=== PATIENT | female | born 1945 | race Caucasian/White ===

== ENCOUNTER → 2018-10-05 | Outpatient (CLI) | payer MEDICARE, OTHER ==
[2018-10-05 10:17] LABS: CREATININE SERUM 1.09 MG/DL (0.60-1.30)
--- NOTE | 2018-10-05 15:10 | Diagnostic Imaging Report ---
PROCEDURE: CT chest with contrast only. TECHNIQUE: Multiple contiguous axial images were obtained through the chest after administration of intravenous contrast. Auto Exposure Controls were utilized during the CT exam to meet ALARA standards for radiation dose reduction. INDICATION: History of smoking, cough, and shortness of air. COMPARISON: Outside PET/CT from 09/28/2018. FINDINGS: Lungs and airway: No endoluminal nodule within the trachea. Moderate centrilobular emphysema is present. There is a gently lobulated 1.0 cm nodule within the posterior left upper lobe. This has a small amount of ill-defined nodularity surrounding the dominant nodule as well. The right middle lobe is now aerated, which was atelectatic on the outside PET/CT. A well-circumscribed solid noncalcified nodule is present in the posterior aspect of the middle lobe measuring 1.0 x 1.2 cm. This area was unable to be seen due to complete atelectasis on prior exam. Pleura: No pleural effusion or pneumothorax. Heart and mediastinum: Visualized thyroid has a stable nodule in the lower aspect of the left lobe measuring 1.5 x 1.5 cm. No supraclavicular or axillary lymphadenopathy. No mediastinal, hilar, or juxtaphrenic lymphadenopathy. Heart is normal in size without pericardial effusion. Moderate-sized paraesophageal hiatal hernia. Normal-caliber thoracic aorta. Upper abdomen: Hypoattenuation of the liver could relate to hepatic steatosis. Musculoskeletal: No lytic or blastic skeletal lesion of concern. IMPRESSION: 1. Indeterminate pulmonary nodules involving the left upper lobe and right middle lobe. Correlation with report from outside PET/CT is recommended to determine if these had metabolic activity present or not. The right middle lobe was atelectatic on the PET/CT and therefore this nodule was not directly visualized. 2. No intrathoracic lymphadenopathy. Dictated by: Dictated on workstation # [id number]
== END ==
LOC: RAD 09:44
PROVIDERS: ATTEND Nurse Practitioner Family
DX: J44.9 Chronic obstructive pulmonary disease, unspecified (principal); J30.9 Allergic rhinitis, unspecified; J98.11 Atelectasis; R91.8 Other nonspecific abnormal finding of lung field; Z87.891 Personal history of nicotine dependence
CPT/HCPCS: 36415; 71260; 82565; 84520

== ENCOUNTER 2018-10-11 05:50 | Outpatient (CLI) | payer MEDICARE, OTHER ==
[~2018-10-11] VITALS: Ht 168.9 cm; Wt 82.1 kg
[2018-10-11] MEDS ORDERED: FLUT1DIS27 IH (15:22)
[2018-10-11] MEDS ORDERED: LEVO25TA5 PO (15:22)
[2018-10-11] MEDS ORDERED: TRIA1TAB5 PO (15:22)
[2018-10-11] MEDS ORDERED: IRBE300T18 PO (15:22)
[2018-10-11] MEDS ORDERED: DIPH-581 PO (15:22)
[2018-10-11] MEDS ORDERED: ALB0.5V INH (15:22)
[2018-10-11] MEDS ORDERED: ATOR80TA76 PO (15:22)
[2018-10-11] MEDS ORDERED: FLUO10CA29 PO (15:22)
[2018-10-11] MEDS ORDERED: FLUT9.9S NS (15:22)
[2018-10-11] MEDS ORDERED: ASPI-586 PO (15:22)
== END 2018-10-11 15:29 | disposition home or self-care (01) ==
LOC: PREOP 05:50
PROVIDERS: ATTEND Internal Medicine Critical Care Medicine
DX: Z01.818 Encounter for other preprocedural examination (principal)

== ENCOUNTER 2018-10-13 06:35 | Day surgery (SDC) | payer MEDICARE, OTHER ==
[~2018-10-13] VITALS: Ht 168.9 cm; Wt 82.1 kg
[~2018-10-13 06:35] MED LIST: ALB0.5V INH; ASPI-586 PO; ATOR80TA76 PO; DIPH-581 PO; FLUO10CA29 PO; FLUT1DIS27 IH; FLUT9.9S NS; IRBE300T18 PO; LEVO25TA5 PO; TRIA1TAB5 PO
[2018-10-13] MEDS ORDERED: LIDOCAINE PF 2% 5 ML (XYLOCAINE) VIAL INJ ONE (06:36)
[2018-10-13] MEDS ORDERED: LIDOCAINE PF 1% 2 ML AMP IJ ONE ×2 (06:36)
[2018-10-13] MEDS ORDERED: LIDOCAINE JELLY 2% 6 ML SYRINGE MM ONE (06:36)
--- OUTSIDE RECORDS SUMMARY | 2018-10-13 06:39 | XMS REPORT | CCD ---
Author Author SARA CLINTON Organization Unknown Address [address] [place] [address] Care Team Providers Care Ethylbenzene Oxidizer Name Role Phone AILYN SEALS, KEESHA Parker Attphys Allergies Allergy Code Allergy Type Reaction Status No Known Drug Allergies 0 Drug allergy Active Active Medications No Active Medications Problems Unknown or Not Available. Procedures Procedure Code Procedure Type Date Neuroplasty &/transposition ulnar nerve elbow; (-LT Left side of body) 60507 CPT 03/07/2016 Results Unknown or Not Available. Function Status Unknown or Not Available. History of Immunizations Immunization Code Date Tdap 115 08/14/2014 Plan of Treatment Unknown or Not Available. Social History Smoking Status Code Start Date End Date Never smoker [id number] Vital Signs Vital Sign Value Unit Date/Time Recent/Initial? Weight Measured 175 [lb_av] 02/19/2016 12:31 Initial VS Height 67 [in_i] 02/19/2016 12:31 Initial VS BMI (Body Mass Index) 27.41 kg/m2 02/19/2016 12:31 Initial VS BSA (Body Surface Area) 1.94 m2 02/19/2016 12:31 Initial VS BP Systolic 98 mm[Hg] 03/07/2016 10:16 Initial VS BP Diastolic 47 mm[Hg] 03/07/2016 10:16 Initial VS Respiratory Rate 13 /min 03/07/2016 10:16 Initial VS Heart Rate 85 /min 03/07/2016 10:16 Initial VS O2 % BldC Oximetry 96 % 03/07/2016 10:16 Initial VS Respiratory Rate 10 /min 03/07/2016 10:47 Most Recent VS O2 % BldC Oximetry 100 % 03/07/2016 10:47 Most Recent VS BP Systolic 98 mm[Hg] 03/07/2016 10:53 Most Recent VS BP Diastolic 54 mm[Hg] 03/07/2016 10:53 Most Recent VS Heart Rate 82 /min 03/07/2016 10:53 Most Recent VS Function Status Unknown or Not Available. Goals Unknown or Not Available. ASSESSMENTS Unknown or Not Available. Health Concerns Section Unknown or Not Available.
--- OUTSIDE RECORDS SUMMARY | 2018-10-13 06:40 | XMS REPORT | CCD ---
Author Author ZENAIDA SPRINGER Unknown Address [address] [place] [address] Care Team Providers Care Gyn Physician Name Role Phone HYDE ER, JOON DO Attphys HYDE ER, JOON DO Prisurg Allergies Allergy Code Allergy Type Reaction Status No Known Drug Allergies 0 Drug allergy Active Active Medications Unknown or Not Available. Problems Unknown or Not Available. Procedures Procedure Code Procedure Type Date CT HEAD W/O CONTRAST [id number] SNOMED CT 03/30/2016 Results Unknown or Not Available. Encounters Encounter Diagnosis Diagnosis Code Start Date Contusion of other part of head, initial encounter [id number] 03/30/2016 Function Status Unknown or Not Available. History of Immunizations Immunization Code Date Tdap 115 08/14/2014 Plan of Treatment Unknown or Not Available. Social History Smoking Status Code Start Date End Date Never smoker [id number] Vital Signs Unknown or Not Available. Function Status Unknown or Not Available. Goals Unknown or Not Available. ASSESSMENTS Unknown or Not Available. Health Concerns Section Unknown or Not Available.
--- OUTSIDE RECORDS SUMMARY | 2018-10-13 06:42 | XMS REPORT ---
Author Author Calvin Britt [facility] Address [address] [place], [place] [id number] Care Team Providers Care Vacuum Drier Operator Name Role Phone Calvin Britt PCP Calvin Britt PreferredProvider Allergies and Adverse Reactions Name Reaction Notes INFLUENZA VIRUS VACCINE [place] pt is allergic to the generic Plan of Treatment Planned Activity Comments Planned Date Planned Time Plan/Goal Thyroid stimulating hormone (TSH) 09/13/2018 12:00 AM Complete ultrasound of left breast 10/04/2018 12:00 AM PET scan for malignancy of skull base to mid-thigh 09/23/2018 12:00 AM Comprehensive Metabolic Panel 11/30/2013 12:00 AM Rapid influenza antigen detection at point of care 07/25/2014 12:00 AM Pap smear HPV 07/19/2014 12:00 AM Medications Active Name Start Date Estimated Completion Date SIG Comments Lipitor 80 mg oral tablet take 1 tablet (80 mg) by oral route once daily triamterene-hydrochlorothiazid 75-50 mg oral tablet take 1 tablet by oral route once daily triamcinolone acetonide 55 mcg nasal aerosol,spray spray 1 spray in each nostril by intranasal route once daily fluoxetine 10 mg oral capsule 02/02/2018 TAKE ONE CAPSULE BY MOUTH ONCE DAILY Ambien 10 mg oral tablet take 1 tablet (10 mg) by oral route once daily at bedtime for 30 days fluticasone propionate 50 mcg/actuation nasal spray,suspension 09/13/2018 inhale 2 sprays (100 mcg) in each nostril by intranasal route once daily Name Start Date Expiration Date SIG Comments ProAir HFA 90 mcg/actuation inhalation HFA aerosol inhaler 05/02/2011 04/26/2012 inhale 2 puffs by inhalation route every 6 hours as needed Avapro 300 mg oral tablet 08/12/2011 09/11/2011 take 1 tablet (300 mg) by oral route once daily Advair Diskus 500-50 mcg/dose inhalation blister with device 12/25/2011 01/24/2012 INHALE ONE INHALATION EVERY TWELVE HOURS not covered prednisone 5 mg oral tablet 08/30/2013 09/13/2013 take 1 tablet by oral route daily for 14 days Enteric Coated Aspirin 81 mg oral tablet,delayed release (DR/EC) 09/26/2014 09/27/2014 take 1 tablet by oral route 3 times per week Medrol (Reuben) 4 mg oral tablets,dose pack 12/27/2014 01/02/2015 take as directed for 6 days Synthroid 25 mcg oral tablet 11/26/2015 02/24/2016 take 1 tablet (25 mcg) by oral route once daily for 90 days Advair Diskus 500-50 mcg/dose inhalation blister with device 04/02/2017 04/02/2017 INHALE ONE DOSE BY MOUTH TWICE DAILY Tamiflu 75 mg oral capsule 05/09/2017 take 1 capsule (75 mg) by oral route 2 times per day for 5 days levothyroxine 25 mcg oral tablet 06/29/2017 06/29/2017 TAKE ONE TABLET BY MOUTH ONCE DAILY albuterol sulfate 2.5 mg /3 mL (0.083 %) inhalation solution for nebulization 10/26/2017 12/27/2017 USE ONE VIAL IN NEBULIZER 4 TIMES DAILY. Dx: COPD J44.9 Augmentin 875-125 mg oral tablet 04/07/2018 04/14/2018 take 1 tablet by oral route every 12 hours for 7 days Discontinued Name Start Date Discontinued Date SIG Comments [place]and 32 mg oral tablet 08/12/2011 take 1 tablet (32 mg) by oral route once daily Spiriva with HandiHaler 18 mcg inhalation capsule, w/inhalation device 06/05/2014 08/14/2014 inhale 1 capsule (18 mcg) by inhalation route once daily for 30 days to expensive Symbicort 160-4.5 mcg/actuation inhalation HFA aerosol inhaler 06/05/2014 07/26/2014 inhale 2 puffs by inhalation route 2 times per day in the morning and evening for 30 days Advair HFA 115-21 mcg/actuation inhalation HFA aerosol inhaler 07/26/2014 08/14/2014 inhale 2 puffs by inhalation route 2 times per day in the morning and evening to expensive ipratropium bromide 0.02 % inhalation solution 09/26/2014 01/11/2016 inhale 2.5 milliliters (500 mcg) via nebulizer by inhalation route every 6 hours for 90 days [place] Ellipta 100-25 mcg/dose inhalation blister with device 01/11/2016 01/11/2016 inhale 1 puff by inhalation route once daily at the same time each day for 30 days Lunesta 3 mg oral tablet 04/07/2018 04/08/2018 take 1 tablet (3 mg) by oral route once daily at bedtime for 30 days Problem List Description Status Onset Allergic Rhinitis Active CAD Active Chronic Obstructive Pulmonary Disease Active Hyperlipidemia Active Hypertension Active Vital Signs Date Time BP-Sys(mm[Hg] BP-Dilia(mm[Hg]) HR(bpm) RR(rpm) Temp WT HT HC BMI BSA BMI Percentile O2 Sat(%) 09/13/2018 10:23:00 AM 132 mmHg 68 mmHg 78 bpm 18 rpm 97.2 F 180.125 lbs 66 in 29.0726 kg/m 1.9506 m 95 % 04/07/2018 10:49:00 AM 120 mmHg 64 mmHg 94 bpm 16 rpm 98.8 F 179 lbs 66 in 28.89 kg/m2 1.94 m2 96 % 02/03/2018 10:23:00 AM 126 mmHg 64 mmHg 76 bpm 16 rpm 98.2 F 180 lbs 66 in 29.0525 kg/m 1.9499 m 97 % 09/24/2017 11:10:00 AM 176 mmHg 82 mmHg 84 bpm 18 rpm 97.9 F 184.375 lbs 66 in 29.76 kg/m2 1.97 m2 95 % 05/09/2017 8:30:00 AM 120 mmHg 68 mmHg 74 bpm 18 rpm 99 F 174 lbs 66 in 28.08 kg/m2 1.9171 m 92 % 02/23/2017 9:02:00 AM 130 mmHg 60 mmHg 96 bpm 16 rpm 97.8 F 174.5 lbs 96 % 01/19/2017 3:04:00 PM 138 mmHg 64 mmHg 78 bpm 20 rpm 98.2 F 169 lbs 66 in 27.277 kg/m 1.8894 m 97 % 10/15/2016 2:20:00 PM 138 mmHg 76 mmHg 80 bpm 18 rpm 99 F 171.125 lbs 66 in 27.62 kg/m2 1.90 m2 93 % 07/16/2016 3:20:00 PM 116 mmHg 64 mmHg 79 bpm 16 rpm 97.8 F 171.25 lbs 66 in 27.6402 kg/m 1.9019 m 93 % 04/17/2016 2:23:00 PM 132 mmHg 72 mmHg 79 bpm 16 rpm 98.6 F 180 lbs 66 in 29.05 kg/m2 1.95 m2 94 % 01/11/2016 10:38:00 AM 116 mmHg 70 mmHg 73 bpm 16 rpm 98 F 173 lbs 66 in 27.9226 kg/m 1.9116 m 95 % 12/14/2015 9:31:00 AM 148 mmHg 80 mmHg 89 bpm 16 rpm 98.3 F 173.375 lbs 66 in 27.98 kg/m2 1.91 m2 95 % 03/21/2015 10:35:00 AM 128 mmHg 64 mmHg 84 bpm 98.4 F 180.125 lbs 67 in 28.21 kg/m2 1.9653 m 95 % 12/27/2014 10:21:00 AM 124 mmHg 70 mmHg 76 bpm 99.1 F 179.375 lbs 66 in 28.9516 kg/m 1.95 m2 94 % 09/26/2014 10:08:00 AM 112 mmHg 74 mmHg 81 bpm 98.4 F 179.125 lbs 66 in 28.91 kg/m2 1.9451 m 92 % 08/14/2014 3:43:00 PM 130 mmHg 64 mmHg 82 bpm 96.9 F 177.25 lbs 66 in 28.6086 kg/m 1.93 m2 96 % 07/25/2014 9:31:00 AM 122 mmHg 66 mmHg 102 bpm 99.5 F 178.5 lbs 66 in 28.81 kg/m2 1.9417 m 95 % 07/19/2014 1:30:00 PM 124 mmHg 68 mmHg 80 bpm 98.6 F 177.5 lbs 67 in 27.8001 kg/m 1.95 m2 95 % 06/05/2014 1:46:00 PM 122 mmHg 66 mmHg 80 bpm 98.6 F 177.25 lbs 67 in 27.76 kg/m2 1.95 m2 95 % 03/06/2014 1:17:00 PM 110 mmHg 62 mmHg 75 bpm 16 rpm 97.9 F 177 lbs 67 in 27.7218 kg/m 1.9482 m 97 % 11/30/2013 11:00:00 AM 120 mmHg 68 mmHg 75 bpm 20 rpm 97.5 F 171.2 lbs 67 in 26.81 kg/m2 1.92 m2 95 % 08/30/2013 2:08:00 PM 122 mmHg 63 mmHg 80 bpm 16 rpm 98.3 F 173 lbs 67 in 27.0954 kg/m 1.926 m 95 % 05/26/2013 2:10:00 PM 110 mmHg 70 mmHg 76 bpm 16 rpm 97.9 F 172.25 lbs 67 in 26.98 kg/m2 1.92 m2 95 % 02/23/2013 2:02:00 PM 118 mmHg 68 mmHg 79 bpm 16 rpm 97.2 F 170.375 lbs 98 % 11/23/2012 1:12:00 PM 122 mmHg 74 mmHg 69 bpm 20 rpm 97.4 F 167.8 lbs 67 in 26.28 kg/m2 1.90 m2 95 % 08/16/2012 1:44:00 PM 122 mmHg 80 mmHg 70 bpm 16 rpm 97.8 F 169 lbs 97 % 05/19/2012 2:04:00 PM 122 mmHg 74 mmHg 74 bpm 16 rpm 96.8 F 166.25 lbs 96 % 02/10/2012 9:08:00 AM 134 mmHg 80 mmHg 79 bpm 16 rpm 96 F 171.125 lbs 97 % 11/12/2011 8:31:00 AM 120 mmHg 80 mmHg 82 bpm 16 rpm 98 F 180.125 lbs 93 % 08/12/2011 9:25:00 AM 142 mmHg 80 mmHg 81 bpm 16 rpm 97.4 F 180 lbs 95 % 07/02/2011 9:13:00 AM 142 mmHg 80 mmHg 84 bpm 16 rpm 97.6 F 178.375 lbs 94 % 05/05/2011 8:49:00 AM 122 mmHg 72 mmHg 04/29/2011 9:51:00 AM 130 mmHg 86 mmHg 71 bpm 16 rpm 97.3 F 182.5 lbs 67 in 28.58 kg/m2 1.98 m2 98 % Social History Name Description Comments Alcohol Never High school graduate Tobacco Former smoker Denies illicit substance abuse Active but no formal exercise retired Did not serve in Children Lives with spouse History of Procedures Date Ordered Description Order Status 12/21/2014 12:00 AM COMPLETE CBC W/AUTO DIFF WBC Reviewed 12/21/2014 12:00 AM COMPREHEN METABOLIC PANEL Reviewed 12/21/2014 12:00 AM LIPID PANEL Reviewed 03/16/2015 12:00 AM COMPLETE CBC W/AUTO DIFF WBC Reviewed 03/16/2015 12:00 AM COMPREHEN METABOLIC PANEL Reviewed 03/16/2015 12:00 AM LIPID PANEL Reviewed 04/29/2011 12:00 AM COMPREHEN METABOLIC PANEL Reviewed 04/29/2011 12:00 AM LIPID PANEL Reviewed 04/29/2011 12:00 AM COMPLETE CBC W/AUTO DIFF WBC Reviewed 12/14/2015 12:00 AM NVR CNDJ TST 1-2 STUDIES Returned 07/02/2011 12:00 AM COMPREHEN METABOLIC PANEL Reviewed 07/02/2011 12:00 AM LIPID PANEL Reviewed 04/14/2016 12:00 AM COMPLETE CBC W/AUTO DIFF WBC Returned 04/14/2016 12:00 AM COMPREHEN METABOLIC PANEL Returned 04/14/2016 12:00 AM LIPID PANEL Returned 08/12/2011 12:00 AM COMPREHEN METABOLIC PANEL Reviewed 08/12/2011 12:00 AM LIPID PANEL Reviewed 05/18/2016 12:00 AM ASSAY THYROID STIM HORMONE Returned 11/12/2011 12:00 AM COMPREHEN METABOLIC PANEL Reviewed 11/12/2011 12:00 AM LIPID PANEL Reviewed 10/10/2016 12:00 AM COMPLETE CBC W/AUTO DIFF WBC Returned 10/10/2016 12:00 AM COMPREHEN METABOLIC PANEL Returned 10/10/2016 12:00 AM LIPID PANEL Returned 10/10/2016 12:00 AM ASSAY THYROID STIM HORMONE Returned 10/15/2016 12:00 AM METABOLIC PANEL TOTAL CA Returned 10/15/2016 12:00 AM COMPLETE CBC W/AUTO DIFF WBC Returned 02/10/2012 12:00 AM COMPREHEN METABOLIC PANEL Reviewed 02/10/2012 12:00 AM LIPID PANEL Reviewed 02/10/2012 12:00 AM COMPLETE CBC W/AUTO DIFF WBC Reviewed 02/23/2017 12:00 AM NRV CNDJ TEST 9-10 STUDIES Reviewed 02/23/2017 12:00 AM MUSC TEST DONE W/N TEST COMP Reviewed 05/19/2012 12:00 AM COMPREHEN METABOLIC PANEL Reviewed 05/19/2012 12:00 AM LIPID PANEL Reviewed 05/19/2012 12:00 AM COMPLETE CBC W/AUTO DIFF WBC Reviewed 07/13/2017 12:00 AM COMPLETE CBC W/AUTO DIFF WBC Returned 07/13/2017 12:00 AM COMPREHEN METABOLIC PANEL Returned 07/13/2017 12:00 AM LIPID PANEL Returned 07/13/2017 12:00 AM ASSAY THYROID STIM HORMONE Returned 09/24/2017 12:00 AM MAMMOGRAM BOTH BREASTS Returned 11/16/2012 12:00 AM COMPREHEN METABOLIC PANEL Reviewed 11/16/2012 12:00 AM LIPID PANEL Reviewed 11/16/2012 12:00 AM COMPLETE CBC W/AUTO DIFF WBC Reviewed 02/23/2013 12:00 AM COMPREHEN METABOLIC PANEL Reviewed 02/23/2013 12:00 AM LIPID PANEL Reviewed 02/23/2013 12:00 AM COMPLETE CBC W/AUTO DIFF WBC Reviewed 05/26/2013 12:00 AM COMPREHEN METABOLIC PANEL Reviewed 05/26/2013 12:00 AM LIPID PANEL Reviewed 05/26/2013 12:00 AM COMPLETE CBC W/AUTO DIFF WBC Reviewed 09/09/2018 12:00 AM MAMMOGRAM BOTH BREASTS Returned 09/14/2018 12:[address] THORAX W/DYE Returned 09/13/2018 12:00 AM COMPLETE CBC W/AUTO DIFF WBC Returned 09/13/2018 12:00 AM COMPREHEN METABOLIC PANEL Returned 09/13/2018 12:00 AM CHEST X-RAY 2VW FRONTAL&LATL Returned 05/26/2013 12:00 AM MAMMOGRAM BOTH BREASTS Reviewed 08/26/2013 12:00 AM COMPLETE CBC W/AUTO DIFF WBC Reviewed 08/26/2013 12:00 AM COMPREHEN METABOLIC PANEL Reviewed 08/26/2013 12:00 AM LIPID PANEL Reviewed 08/26/2013 12:00 AM MICROALBUMIN SEMIQUANT Reviewed 08/30/2013 12:00 AM Shoulder Min 2Views - MOB Reviewed 09/08/2013 12:00 AM MRI JOINT UPR EXTREM W/O DYE Reviewed 11/30/2013 12:00 AM LIPID PANEL Reviewed 11/30/2013 12:00 AM COMPLETE CBC W/AUTO DIFF WBC Reviewed 03/07/2014 12:00 AM COMPLETE CBC W/AUTO DIFF WBC Reviewed 03/07/2014 12:00 AM COMPREHEN METABOLIC PANEL Reviewed 03/07/2014 12:00 AM LIPID PANEL Reviewed 07/04/2014 12:00 AM MAMMOGRAM SCREENING Reviewed 08/14/2014 12:00 AM IMMUNIZATION ADMIN Reviewed 08/14/2014 12:00 AM TDAP VACCINE 7 YRS/> IM Reviewed 09/25/2014 12:00 AM COMPLETE CBC W/AUTO DIFF WBC Reviewed 09/25/2014 12:00 AM COMPREHEN METABOLIC PANEL Reviewed 09/25/2014 12:00 AM LIPID PANEL Reviewed 09/25/2014 12:00 AM ASSAY THYROID STIM HORMONE Reviewed Results Summary Date and Description Results 04/29/2011 10:05 AM Colonoscopy-Women and Men over 50 Declined Mammogram -Women over 40 Normal Pap Smear Declined 05/05/2011 8:35 AM WBC 5.6 RBC 4.79 HGB 14.0 g/dLHCT 42.70 %MCV 89.0 fLMCH 29.20 pgMCHC 32.80 g/dLRDW SD 45 RDW CV 13.70 %MPV 9.80 fLPLT 214 NRBC# 0.00 NRBC% 0.0 %NEUT 55.90 %%LYMP 29.40 %%MONO 9.30 %%EOS 5.0 %%BASO 0.40 %#NEUT 3.11 #LYMP 1.64 #MONO 0.52 #EOS 0.28 #BASO 0.02 MANUAL DIFF NOT IND GLUCOSE 91.0 mg/dLSODIUM 143.0 mmol/LPOTASSIUM 4.10 mmol/LCHLORIDE 107.0 mmol/LCO2 29.0 mmol/LBUN 26.0 mg/dLCREATININE 1.20 mg/dLSGOT/AST 21.0 IU/LSGPT/ALT 28.0 IU/LALK PHOS 127.0 IU/LTOTAL PROTEIN 6.40 g/dLALBUMIN 4.30 g/dLTOTAL BILI 0.40 mg/dLCALCIUM 9.70 mg/dLAGE 65 GFR NonAA 45 GFR AA 55 eGFR 45 eGFR AA* 55 TRIGLYCERIDES 95.0 mg/dLCHOLESTEROL 139.0 mg/dLHDL 42.0 mg/dLTOT CHOL/HDL 3.3 LDL (CALC) 78.0 mg/dL 08/08/2011 8:25 AM GLUCOSE 94.0 mg/dLSODIUM 141.0 mmol/LPOTASSIUM 3.80 mmol/LCHLORIDE 105.0 mmol/LCO2 26.0 mmol/LBUN 35.0 mg/dLCREATININE 1.20 mg/dLSGOT/AST 21.0 IU/LSGPT/ALT 26.0 IU/LALK PHOS 130.0 IU/LTOTAL PROTEIN 6.80 g/dLALBUMIN 4.20 g/dLTOTAL BILI 0.50 mg/dLCALCIUM 9.50 mg/dLAGE 65 GFR NonAA 45 GFR AA 55 eGFR 45 eGFR AA* 55 TRIGLYCERIDES 124.0 mg/dLCHOLESTEROL 179.0 mg/dLHDL 46.0 mg/dLTOT CHOL/HDL 3.9 LDL (CALC) 108.0 mg/dL 11/07/2011 8:30 AM GLUCOSE 94.0 mg/dLSODIUM 142.0 mmol/LPOTASSIUM 3.80 mmol/LCHLORIDE 107.0 mmol/LCO2 27.0 mmol/LBUN 17.0 mg/dLCREATININE 0.90 mg/dLSGOT/AST 19.0 IU/LSGPT/ALT 27.0 IU/LALK PHOS 127.0 IU/LTOTAL PROTEIN 6.50 g/dLALBUMIN 4.0 g/dLTOTAL BILI 0.30 mg/dLCALCIUM 9.40 mg/dLAGE 66 GFR NonAA 63 GFR AA 76 eGFR 60 eGFR AA* 60 TRIGLYCERIDES 174.0 mg/dLCHOLESTEROL 164.0 mg/dLHDL 46.0 mg/dLTOT CHOL/HDL 3.6 LDL (CALC) 83.0 mg/dL 02/07/2012 8:15 AM GLUCOSE 87.0 mg/dLSODIUM 141.0 mmol/LPOTASSIUM 3.80 mmol/LCHLORIDE 106.0 mmol/LCO2 28.0 mmol/LBUN 20.0 mg/dLCREATININE 1.0 mg/dLSGOT/AST 22.0 IU/LSGPT/ALT 32.0 IU/LALK PHOS 144.0 IU/LTOTAL PROTEIN 6.70 g/dLALBUMIN 4.10 g/dLTOTAL BILI 0.40 mg/dLCALCIUM 9.70 mg/dLAGE 66 GFR NonAA 56 GFR AA 68 eGFR 56 eGFR AA* 60 TRIGLYCERIDES 131.0 mg/dLCHOLESTEROL 151.0 mg/dLHDL 48.0 mg/dLTOT CHOL/HDL 3.1 LDL (CALC) 77.0 mg/dL 05/10/2012 8:20 AM WBC 6.1 RBC 5.20 HGB 15.40 g/dLHCT 45.70 %MCV 88.0 fLMCH 29.60 pgMCHC 33.70 g/dLRDW SD 44 RDW CV 13.60 %MPV 9.50 fLPLT 234 NRBC# 0.00 NRBC% 0.0 %NEUT 57.80 %%LYMP 27.30 %%MONO 7.20 %%EOS 7.20 %%BASO 0.50 %#NEUT 3.50 #LYMP 1.66 #MONO 0.44 #EOS 0.44 #BASO 0.03 MANUAL DIFF NOT IND GLUCOSE 89.0 mg/dLSODIUM 143.0 mmol/LPOTASSIUM 3.50 mmol/LCHLORIDE 105.0 mmol/LCO2 27.0 mmol/LBUN 27.0 mg/dLCREATININE 1.10 mg/dLSGOT/AST 21.0 IU/LSGPT/ALT 30.0 IU/LALK PHOS 153.0 IU/LTOTAL PROTEIN 7.10 g/dLALBUMIN 4.20 g/dLTOTAL BILI 0.40 mg/dLCALCIUM 10.20 mg/dLAGE 66 GFR NonAA 50 GFR AA 61 eGFR 50 eGFR AA* 60 TRIGLYCERIDES 115.0 mg/dLCHOLESTEROL 180.0 mg/dLHDL 51.0 mg/dLTOT CHOL/HDL 3.5 LDL (CALC) 106.0 mg/dL 08/12/2012 8:45 AM WBC 6.1 RBC 4.91 HGB 14.40 g/dLHCT 43.40 %MCV 88.0 fLMCH 29.30 pgMCHC 33.20 g/dLRDW SD 44 RDW CV 13.70 %MPV 9.70 fLPLT 220 NRBC# 0.00 NRBC% 0.0 %NEUT 54.30 %%LYMP 29.80 %%MONO 8.50 %%EOS 6.90 %%BASO 0.50 %#NEUT 3.32 #LYMP 1.82 #MONO 0.52 #EOS 0.42 #BASO 0.03 MANUAL DIFF NOT IND GLUCOSE 90.0 mg/dLSODIUM 143.0 mmol/LPOTASSIUM 3.80 mmol/LCHLORIDE 104.0 mmol/LCO2 27.0 mmol/LBUN 28.0 mg/dLCREATININE 1.10 mg/dLSGOT/AST 20.0 IU/LSGPT/ALT 25.0 IU/LALK PHOS 123.0 IU/LTOTAL PROTEIN 6.80 g/dLALBUMIN 4.0 g/dLTOTAL BILI 0.50 mg/dLCALCIUM 10.10 mg/dLAGE 66 GFR NonAA 50 GFR AA 61 eGFR 50 eGFR AA* 60 TRIGLYCERIDES 98.0 mg/dLCHOLESTEROL 157.0 mg/dLHDL 49.0 mg/dLTOT CHOL/HDL 3.2 LDL (CALC) 88.0 mg/dL 11/18/2012 8:58 AM WBC 5.4 RBC 4.72 HGB 13.80 g/dLHCT 41.60 %MCV 88.0 fLMCH 29.20 pgMCHC 33.20 g/dLRDW SD 44 RDW CV 13.50 %MPV 9.70 fLPLT 198 NRBC# 0.00 NRBC% 0.0 %NEUT 56.30 %%LYMP 31.0 %%MONO 6.70 %%EOS 5.60 %%BASO 0.40 %#NEUT 3.02 #LYMP 1.66 #MONO 0.36 #EOS 0.30 #BASO 0.02 MANUAL DIFF NOT IND GLUCOSE 97.0 mg/dLSODIUM 143.0 mmol/LPOTASSIUM 4.0 mmol/LCHLORIDE 107.0 mmol/LCO2 28.0 mmol/LBUN 22.0 mg/dLCREATININE 1.0 mg/dLSGOT/AST 19.0 IU/LSGPT/ALT 22.0 IU/LALK PHOS 113.0 IU/LTOTAL PROTEIN 6.10 g/dLALBUMIN 3.80 g/dLTOTAL BILI 0.50 mg/dLCALCIUM 9.70 mg/dLAGE 67 GFR NonAA 55 GFR AA 67 eGFR 55 eGFR AA* 60 TRIGLYCERIDES 90.0 mg/dLCHOLESTEROL 130.0 mg/dLHDL 46.0 mg/dLTOT CHOL/HDL 2.8 LDL (CALC) 66.0 mg/dL 02/21/2013 8:25 AM WBC 6.6 RBC 4.78 HGB 13.90 g/dLHCT 42.10 %MCV 88.0 fLMCH 29.10 pgMCHC 33.0 g/dLRDW SD 46 RDW CV 14.50 %MPV 9.70 fLPLT 260 NRBC# 0.00 NRBC% 0.0 %NEUT 56.30 %%LYMP 27.50 %%MONO 7.30 %%EOS 8.40 %%BASO 0.50 %#NEUT 3.71 #LYMP 1.81 #MONO 0.48 #EOS 0.55 #BASO 0.03 MANUAL DIFF NOT IND TRIGLYCERIDES 136.0 mg/dLCHOLESTEROL 178.0 mg/dLHDL 55.0 mg/dLTOT CHOL/HDL 3.2 LDL (CALC) 96.0 mg/dLGLUCOSE 90.0 mg/dLSODIUM 143.0 mmol/LPOTASSIUM 4.0 mmol/LCHLORIDE 106.0 mmol/LCO2 26.0 mmol/LBUN 19.0 mg/dLCREATININE 1.0 mg/dLSGOT/AST 22.0 IU/LSGPT/ALT 33.0 IU/LALK PHOS 164.0 IU/LTOTAL PROTEIN 6.90 g/dLALBUMIN 4.10 g/dLTOTAL BILI 0.60 mg/dLCALCIUM 10.10 mg/dLAGE 67 GFR NonAA 55 GFR AA 67 eGFR 55 eGFR AA* >60 05/23/2013 8:10 AM WBC 6.4 RBC 4.97 HGB 14.60 g/dLHCT 44.20 %MCV 89.0 fLMCH 29.40 pgMCHC 33.0 g/dLRDW SD 45 RDW CV 13.80 %MPV 9.70 fLPLT 266 NRBC# 0.00 NRBC% 0.0 %NEUT 54.80 %%LYMP 31.50 %%MONO 8.0 %%EOS 5.20 %%BASO 0.50 %#NEUT 3.50 #LYMP 2.01 #MONO 0.51 #EOS 0.33 #BASO 0.03 MANUAL DIFF NOT IND GLUCOSE 94.0 mg/dLSODIUM 142.0 mmol/LPOTASSIUM 3.60 mmol/LCHLORIDE 104.0 mmol/LCO2 25.0 mmol/LBUN 25.0 mg/dLCREATININE 1.10 mg/dLSGOT/AST 21.0 IU/LSGPT/ALT 31.0 IU/LALK PHOS 158.0 IU/LTOTAL PROTEIN 6.70 g/dLALBUMIN 4.0 g/dLTOTAL BILI 0.60 mg/dLCALCIUM 10.50 mg/dLAGE 67 GFR NonAA 50 GFR AA 61 eGFR 50 eGFR AA* >60 TRIGLYCERIDES 140.0 mg/dLCHOLESTEROL 178.0 mg/dLHDL 54.0 mg/dLTOT CHOL/HDL 3.3 LDL (CALC) 96.0 mg/dL 08/26/2013 8:15 AM GLUCOSE 98.0 mg/dLSODIUM 141.0 mmol/LPOTASSIUM 3.50 mmol/LCHLORIDE 106.0 mmol/LCO2 27.0 mmol/LBUN 31.0 mg/dLCREATININE 1.10 mg/dLSGOT/AST 19.0 IU/LSGPT/ALT 23.0 IU/LALK PHOS 117.0 IU/LTOTAL PROTEIN 6.60 g/dLALBUMIN 3.90 g/dLTOTAL BILI 0.60 mg/dLCALCIUM 9.70 mg/dLAGE 68 GFR NonAA 50 GFR AA 61 eGFR 50 eGFR AA* 60 WBC 5.7 RBC 4.61 HGB 13.60 g/dLHCT 40.30 %MCV 87.0 fLMCH 29.50 pgMCHC 33.70 g/dLRDW SD 45 RDW CV 14.20 %MPV 9.30 fLPLT 201 NRBC# 0.00 NRBC% 0.0 %NEUT 51.70 %%LYMP 34.60 %%MONO 8.60 %%EOS 4.60 %%BASO 0.50 %#NEUT 2.95 #LYMP 1.97 #MONO 0.49 #EOS 0.26 #BASO 0.03 MANUAL DIFF NOT IND TRIGLYCERIDES 93.0 mg/dLCHOLESTEROL 179.0 mg/dLHDL 54.0 mg/dLTOT CHOL/HDL 3.3 LDL (CALC) 106.0 mg/dLCREAT UR 110.60 mg/dLMICROALBUMIN UR <0.5 MG/DL 02/24/2014 8:22 AM WBC 6.9 RBC 4.81 HGB 14.10 g/dLHCT 42.90 %MCV 89.0 fLMCH 29.30 pgMCHC 32.90 g/dLRDW SD 44 RDW CV 13.50 %MPV 9.70 fLPLT 249 NRBC# 0.00 NRBC% 0.0 %NEUT 59.20 %%LYMP 25.0 %%MONO 8.40 %%EOS 7.0 %%BASO 0.40 %#NEUT 4.07 #LYMP 1.72 #MONO 0.58 #EOS 0.48 #BASO 0.03 MANUAL DIFF NOT IND GLUCOSE 93.0 mg/dLSODIUM 143.0 mmol/LPOTASSIUM 3.90 mmol/LCHLORIDE 105.0 mmol/LCO2 26.0 mmol/LBUN 25.0 mg/dLCREATININE 1.0 mg/dLSGOT/AST 21.0 IU/LSGPT/ALT 27.0 IU/LALK PHOS 145.0 IU/LTOTAL PROTEIN 6.80 g/dLALBUMIN 4.0 g/dLTOTAL BILI 0.60 mg/dLCALCIUM 9.70 mg/dLAGE 68 GFR NonAA 55 GFR AA 67 eGFR 55 eGFR AA* 60 TRIGLYCERIDES 99.0 mg/dLCHOLESTEROL 148.0 mg/dLHDL 53.0 mg/dLTOT CHOL/HDL 2.8 LDL (CALC) 75.0 mg/dL 05/30/2014 7:35 AM WBC 7.3 RBC 4.66 HGB 13.70 g/dLHCT 42.10 %MCV 90.0 fLMCH 29.40 pgMCHC 32.50 g/dLRDW SD 47 RDW CV 14.20 %MPV 9.50 fLPLT 227 NRBC# 0.00 NRBC% 0.0 %NEUT 56.30 %%LYMP 28.60 %%MONO 7.50 %%EOS 7.20 %%BASO 0.40 %#NEUT 4.12 #LYMP 2.09 #MONO 0.55 #EOS 0.53 #BASO 0.03 MANUAL DIFF NOT IND TRIGLYCERIDES 176.0 mg/dLCHOLESTEROL 189.0 mg/dLHDL 51.0 mg/dLTOT CHOL/HDL 3.7 LDL (CALC) 103.0 mg/dL 09/25/2014 8:50 AM TSH 1.10 uIU/mLTRIGLYCERIDES 117.0 mg/dLCHOLESTEROL 163.0 mg/dLHDL 52.0 mg/dLTOT CHOL/HDL 3.1 LDL (CALC) 88.0 mg/dLGLUCOSE 93.0 mg/dLSODIUM 143.0 mmol/LPOTASSIUM 3.40 mmol/LCHLORIDE 107.0 mmol/LCO2 27.0 mmol/LBUN 13.0 mg/dLCREATININE 1.0 mg/dLSGOT/AST 22.0 IU/LSGPT/ALT 26.0 IU/LALK PHOS 145.0 IU/LTOTAL PROTEIN 6.60 g/dLALBUMIN 3.90 g/dLTOTAL BILI 0.60 mg/dLCALCIUM 9.30 mg/dLAGE 69 GFR NonAA 55 GFR AA 67 eGFR 55 eGFR AA* >60 WBC 6.2 RBC 4.73 HGB 13.80 g/dLHCT 42.40 %MCV 90.0 fLMCH 29.20 pgMCHC 32.50 g/dLRDW SD 45 RDW CV 13.70 %MPV 9.40 fLPLT 217 NRBC# 0.00 NRBC% 0.0 %NEUT 57.20 %%LYMP 22.70 %%MONO 7.40 %%EOS 12.20 %%BASO 0.50 %#NEUT 3.55 #LYMP 1.41 #MONO 0.46 #EOS 0.76 #BASO 0.03 MANUAL DIFF NOT IND 12/21/2014 9:10 AM WBC 7.3 RBC 4.89 HGB 14.50 g/dLHCT 43.50 %MCV 89.0 fLMCH 29.70 pgMCHC 33.30 g/dLRDW SD 47 RDW CV 14.60 %MPV 9.30 fLPLT 209 NRBC# 0.00 NRBC% 0.0 %NEUT 55.80 %%LYMP 28.20 %%MONO 6.90 %%EOS 8.70 %%BASO 0.40 %#NEUT 4.06 #LYMP 2.05 #MONO 0.50 #EOS 0.63 #BASO 0.03 MANUAL DIFF NOT IND GLUCOSE 99.0 mg/dLSODIUM 142.0 mmol/LPOTASSIUM 3.70 mmol/LCHLORIDE 106.0 mmol/LCO2 27.0 mmol/LBUN 20.0 mg/dLCREATININE 0.90 mg/dLSGOT/AST 22.0 IU/LSGPT/ALT 27.0 IU/LALK PHOS 148.0 IU/LTOTAL PROTEIN 6.80 g/dLALBUMIN 4.10 g/dLTOTAL BILI 0.60 mg/dLCALCIUM 9.70 mg/dLAGE 69 GFR NonAA 62 GFR AA 75 eGFR >60 mL/min/1.73meGFR AA* >60 TRIGLYCERIDES 157.0 mg/dLCHOLESTEROL 176.0 mg/dLHDL 50.0 mg/dLTOT CHOL/HDL 3.5 LDL (CALC) 95.0 mg/dL 03/16/2015 9:10 AM WBC 6.8 RBC 4.82 HGB 14.20 g/dLHCT 42.80 %MCV 89.0 fLMCH 29.50 pgMCHC 33.20 g/dLRDW SD 44 RDW CV 13.40 %MPV 9.80 fLPLT 236 NRBC# 0.00 NRBC% 0.0 %NEUT 56.0 %%LYMP 30.10 %%MONO 5.60 %%EOS 7.70 %%BASO 0.60 %#NEUT 3.79 #LYMP 2.04 #MONO 0.38 #EOS 0.52 #BASO 0.04 MANUAL DIFF NOT IND GLUCOSE 101.0 mg/dLSODIUM 144.0 mmol/LPOTASSIUM 3.40 mmol/LCHLORIDE 106.0 mmol/LCO2 28.0 mmol/LBUN 18.0 mg/dLCREATININE 1.10 mg/dLSGOT/AST 19.0 IU/LSGPT/ALT 27.0 IU/LALK PHOS 145.0 IU/LTOTAL PROTEIN 6.40 g/dLALBUMIN 4.0 g/dLTOTAL BILI 0.60 mg/dLCALCIUM 9.60 mg/dLAGE 69 GFR NonAA 49 GFR AA 59 eGFR 49 eGFR AA* 59 TRIGLYCERIDES 136.0 mg/dLCHOLESTEROL 163.0 mg/dLHDL 54.0 mg/dLTOT CHOL/HDL 3.0 LDL (CALC) 82.0 mg/dL 03/23/2018 8:26 AM Falls in last 6 months? No Unsteady or worry about falling? No Fall Risk Assessment Not At Risk History Of Immunizations Name Date Admin Mfg Name Mfg Code Trade Name Lot# Route Inj Vis Given Vis Pub CVX Tdap 08/14/2014 san[employer]i pasteur PMC ADACEL [id number] Intramuscular Left Deltoid 08/14/2014 08/12/2012 115 History of Past Illness Name Date of Onset Comments Chronic Obstructive Pulmonary Disease CAD Allergic Rhinitis Hyperlipidemia Hypertension Essential Hypertension Apr 29 2011 10:06AM Hyperlipidemia Apr 29 2011 10:06AM Coronary Artery Disease Apr 29 2011 10:06AM Depressive Disorder Apr 29 2011 10:06AM Chronic Obstructive Pulmonary Disease Apr 29 2011 10:06AM Hypertension, Benign Essential May 05 2011 8:52AM Essential Hypertension Jul 02 2011 9:15AM Hyperlipidemia Jul 02 2011 9:15AM Coronary Artery Disease Jul 02 2011 9:15AM Depressive Disorder Jul 02 2011 9:15AM Chronic Obstructive Pulmonary Disease Jul 02 2011 9:15AM Lesion, Skin Jul 02 2011 9:15AM Essential Hypertension Aug 12 2011 9:27AM Hyperlipidemia Aug 12 2011 9:27AM Coronary Artery Disease Aug 12 2011 9:27AM Depressive Disorder Aug 12 2011 9:27AM Chronic Obstructive Pulmonary Disease Aug 12 2011 9:27AM Lesion, Skin Aug 12 2011 9:27AM Essential Hypertension Nov 12 2011 8:35AM Hyperlipidemia Nov 12 2011 8:35AM Coronary Artery Disease Nov 12 2011 8:35AM Depressive Disorder Nov 12 2011 8:35AM Chronic Obstructive Pulmonary Disease Nov 12 2011 8:35AM Essential Hypertension Feb 10 2012 9:10AM Hyperlipidemia Feb 10 2012 9:10AM Coronary Artery Disease Feb 10 2012 9:10AM Depressive Disorder Feb 10 2012 9:10AM Chronic Obstructive Pulmonary Disease Feb 10 2012 9:10AM Essential Hypertension May 19 2012 2:06PM Hyperlipidemia May 19 2012 2:06PM Coronary Artery Disease May 19 2012 2:06PM Depressive Disorder May 19 2012 2:06PM Chronic Obstructive Pulmonary Disease May 19 2012 2:06PM Essential Hypertension Aug 16 2012 1:46PM Hyperlipidemia Aug 16 2012 1:46PM Coronary Artery Disease Aug 16 2012 1:46PM Depressive Disorder Aug 16 2012 1:46PM Chronic Obstructive Pulmonary Disease Aug 16 2012 1:46PM Essential Hypertension Nov 23 2012 1:16PM Hyperlipidemia Nov 23 2012 1:16PM Coronary Artery Disease Nov 23 2012 1:16PM Depressive Disorder Nov 23 2012 1:16PM Chronic Obstructive Pulmonary Disease Nov 23 2012 1:16PM Essential Hypertension Feb 23 2013 2:05PM Hyperlipidemia Feb 23 2013 2:05PM Coronary Artery Disease Feb 23 2013 2:05PM Depressive Disorder Feb 23 2013 2:05PM Chronic Obstructive Pulmonary Disease Feb 23 2013 2:05PM Screening Mammogram May 26 2013 2:13PM Allergic Rhinitis May 26 2013 2:12PM Chronic Obstructive Pulmonary Disease May 26 2013 2:12PM Hyperlipidemia May 26 2013 2:12PM CAD May 26 2013 2:12PM Coronary Artery Disease Aug 26 2013 8:08AM Hypertension Aug 26 2013 8:08AM Hyperlipidemia Aug 26 2013 8:08AM Chronic Obstructive Pulmonary Disease Aug 26 2013 8:08AM Dyspnea Aug 30 2013 2:10PM Hypertension Aug 30 2013 2:10PM Chronic Obstructive Pulmonary Disease Aug 30 2013 2:10PM Hyperlipidemia Aug 30 2013 2:10PM CAD Aug 30 2013 2:10PM Bilateral Shoulder Pain Aug 30 2013 2:10PM Pain in joint; shoulder region Sep 08 2013 9:23AM Essential Hypertension Nov 30 2013 11:01AM Hyperlipidemia Nov 30 2013 11:01AM Coronary Artery Disease Nov 30 2013 11:01AM Depressive Disorder Nov 30 2013 11:01AM Chronic Obstructive Pulmonary Disease Nov 30 2013 11:01AM Hypertension Dec 06 2013 1:17PM Hyperlipidemia Dec 06 2013 1:17PM Coronary artery disease Dec 06 2013 1:17PM Hypertension Mar 06 2014 1:18PM Allergic rhinitis Mar 06 2014 1:18PM Chronic Obstructive Pulmonary Disease Mar 06 2014 1:18PM Hyperlipidemia Mar 06 2014 1:18PM Allergic rhinitis Jun 05 2014 1:51PM Chronic Obstructive Pulmonary Disease Jun 05 2014 1:51PM Hyperlipidemia Jun 05 2014 1:51PM Asthma Jun 05 2014 1:51PM Hypertriglyceridemia Jun 05 2014 1:51PM Screening Mammogram Jun 14 2014 10:09AM Bronchitis, Acute Jul 25 2014 9:33AM Medicare Annual Pap Q 2 years Jul 19 2014 1:33PM COPD (chronic obstructive pulmonary disease) Aug 14 2014 3:47PM Adacel Aug 14 2014 5:19PM Allergic rhinitis Sep 25 2014 8:37AM Chronic Obstructive Pulmonary Disease Sep 25 2014 8:37AM Hyperlipidemia Sep 25 2014 8:37AM Asthma Sep 25 2014 8:37AM Hypertriglyceridemia Sep 25 2014 8:37AM Allergic Rhinitis Sep 26 2014 10:07AM Chronic obstructive pulmonary disease Sep 26 2014 10:07AM Hyperlipidemia Sep 26 2014 10:07AM Hypertension Sep 26 2014 10:07AM Chronic bronchitis Sep 26 2014 10:07AM Hypertension Dec 21 2014 9:02AM Hyperlipidemia, unspecified Dec 21 2014 9:02AM Allergic Rhinitis Dec 27 2014 10:24AM Fatigue Dec 27 2014 10:24AM Hypertension Mar 16 2015 8:58AM Hyperlipidemia, unspecified Mar 16 2015 8:58AM Chronic Obstructive Pulmonary Disease Mar 21 2015 10:38AM Hyperlipidemia Mar 21 2015 10:38AM Hypokalemia Mar 21 2015 10:38AM Hyperglycemia Mar 21 2015 10:38AM Ulnar nerve entrapment at elbow, left Dec 14 2015 9:35AM Allergic Rhinitis Jan 11 2016 10:44AM Mild intermittent asthma without complication Jan 11 2016 10:44AM Depression Jan 11 2016 10:44AM Cubital tunnel syndrome, left Jan 11 2016 10:44AM Hypertension Apr 14 2016 9:07AM Hyperlipidemia, unspecified Apr 14 2016 9:07AM CAD Apr 17 2016 2:26PM Hyperlipidemia, Mixed Apr 17 2016 2:26PM Hypertension Apr 17 2016 2:26PM Hypothyroidism, Acquired Apr 17 2016 2:26PM Osteoarthritis Apr 17 2016 2:26PM Chronic Obstructive Pulmonary Disease Apr 17 2016 2:26PM Hyperlipidemia, Mixed Jul 16 2016 3:23PM Hypothyroidism, Acquired Jul 16 2016 3:23PM Hyperlipidemia, unspecified Oct 10 2016 8:45AM Hypothyroidism, Acquired Oct 10 2016 8:45AM Hyperlipidemia, Mixed Oct 15 2016 2:22PM Hypertension Oct 15 2016 2:22PM Hypothyroidism, Acquired Oct 15 2016 2:22PM Well adult exam Oct 15 2016 2:22PM Paresthesia Feb 23 2017 9:05AM Hand weakness Feb 23 2017 9:05AM Carpal tunnel syndrome on both sides Jan 19 2017 3:07PM Influenza-like illness May 09 2017 8:32AM Hypertension Jul 13 2017 9:29AM Hyperlipidemia, unspecified Jul 13 2017 9:29AM Hypothyroidism, Acquired Jul 13 2017 9:29AM Encounter for screening mammogram for breast cancer Sep 24 2017 11:48AM Hypertension Sep 24 2017 11:15AM Hypothyroidism, Acquired Sep 24 2017 11:15AM Acute suppurative otitis media of both ears without spontaneous rupture of tympanic membranes, recurrence not specified Feb 03 2018 10:27AM Risk for falls Mar 23 2018 8:26AM CAD (coronary artery disease) Apr 07 2018 10:53AM Grief reaction Apr 07 2018 10:53AM Upper Respiratory Infection Apr 07 2018 10:53AM Encounter for screening mammogram for breast cancer Sep 09 2018 11:20AM Annual physical exam Sep 13 2018 10:28AM Hypertension Sep 13 2018 10:28AM Hypothyroidism, Acquired Sep 13 2018 10:28AM Cough Sep 13 2018 10:28AM Left Upper Pulmonary nodule Sep 14 2018 3:09PM Left Upper Pulmonary nodule Sep 23 2018 5:11PM Right Lung consolidation Sep 23 2018 5:11PM Lung collapse Sep 23 2018 5:11PM Left Anterior Breast mass, left Oct 04 2018 9:30AM Payers Insurance Name Company Name Plan Name Plan Number Policy Number Policy Group Number Start Date Medicare RHC Medicare RHC [id number] N/A [employer] [id number] N/A Railroad Medicare Railroad Medicare [id number] Friday, 2011 Railroad Medicare - Railroad Railroad Medicare [id number] N/A Medicare Part A Medicare Part A [id number] N/A [employer]ico Insurance Company Medico Insurance [employer] [id number] N/A Medicare Part A ZZZMedicare P A - Preventive [id number] N/A Medicare Part A Medicare - Lab/Xray [id number] N/A Medicare RHC Medicare RHC [id number] N/A History of Encounters Visit Date Visit Type Provider 09/13/2018 Office visit Calvin Britt MD 04/07/2018 Office visit Calvin Britt MD 02/03/2018 Office visit Calvin Britt MD 09/24/2017 Office visit Calvin Britt MD 05/09/2017 Office visit Haylee Yanes TRAILHEAD MAINTENANCE WORKER 02/23/2017 Procedures Eric Dos Santos DO 01/19/2017 Office visit Emily Ortiz MD 12/20/2016 [facility] Inna Juarez MD 10/15/2016 Office visit Emily Ortiz MD 07/16/2016 Office visit Emily Ortiz MD 04/17/2016 Office visit Emily Ortiz MD 01/11/2016 Office visit Emily Ortiz MD 12/14/2015 Office visit Emily Ortiz MD 03/21/2015 Office visit Emily Ortiz MD 12/27/2014 Office visit Emily Ortiz MD 09/26/2014 Office visit Emily Ortiz MD 08/14/2014 Office visit 08/14/2014 Office visit Emily Ortiz MD 07/25/2014 Office visit Emily Ortiz MD 07/19/2014 Office visit Emily Ortiz MD 06/05/2014 Office visit Emily Otriz MD 03/06/2014 Office visit Emily Ortiz MD 11/30/2013 Office visit Kaia Kennedy TRAILHEAD MAINTENANCE WORKER 08/30/2013 Office visit Emily Ortiz MD 05/26/2013 Office visit Emily Ortiz MD 02/23/2013 Office visit Rohini Eckert MD 11/23/2012 Office visit Kaia Kennedy TRAILHEAD MAINTENANCE WORKER 08/16/2012 Office visit Rohini Eckert MD 05/19/2012 Office visit Rohini Eckert MD 02/10/2012 Office visit Rohini Eckert MD 11/12/2011 Office visit Rohini Eckert MD 08/12/2011 Office visit Rohini Eckert MD 07/02/2011 Office visit Rohini Eckert MD 05/05/2011 Nurse visit Rohini Eckert MD 04/29/2011 Office visit Rohini Eckert MD
--- OUTSIDE RECORDS SUMMARY | 2018-10-13 06:43 | XMS REPORT ---
Author Author Calvin Britt [facility] Address [address] [place], [place] [id number] Care Team Providers Care Cost Engineer Name Role Phone Calvin Britt PCP Calvin Britt PreferredProvider Allergies and Adverse Reactions Name Reaction Notes INFLUENZA VIRUS VACCINE [place] pt is allergic to the generic Plan of Treatment Planned Activity Comments Planned Date Planned Time Plan/Goal Thyroid stimulating hormone (TSH) 09/13/2018 12:00 AM PET scan for malignancy of skull base to mid-thigh 09/23/2018 12:00 AM Complete ultrasound of left breast 10/04/2018 12:00 AM Comprehensive Metabolic Panel 11/30/2013 12:00 [...] CVX Tdap 08/14/2014 sanofi pasteur PMC ADACEL [id number] Intramuscular Left Deltoid 08/14/2014 08/12/2012 115 History [...] Number Start Date Medicare RHC Medicare RHC [id number] N/A [employer] [id number] N/A Railroad Medicare Railroad Medicare [id number] Friday, 2011 Railroad Medicare - Railroad Railroad Medicare [id number] N/A Medicare Part A Medicare Part A [id number] N/A [employer]ico Insurance Company Medico Insurance [employer] [id number] N/A Medicare Part A ZZZMedicare P A - Preventive [id number] N/A Medicare Part A Medicare - Lab/Xray [id number] N/A Medicare RHC Medicare RHC [id number] N/A History of Encounters Visit Date Visit Type Provider 09/13/2018 Office visit Calvin Britt MD 04/07/2018 Office visit Calvin Britt MD 02/03/2018 Office visit Calvin Britt MD 09/24/2017 Office visit Calvin Britt MD 05/09/2017 Office visit Haylee Yanes SHREDDER OPERATOR 02/23/2017 Procedures Eric Dos Santos DO 01/19/2017 Office visit Emily Ortiz MD 12/20/2016 [facility] Inna Juarez MD 10/15/2016 Office visit [...] Emily Ortiz MD 06/05/2014 Office visit Emily Ortiz MD 03/06/2014 Office visit Emily Ortiz MD 11/30/2013 Office visit Kaia Kennedy SHREDDER OPERATOR 08/30/2013 Office visit Emily Ortiz MD 05/26/2013 Office visit Emily Ortiz MD 02/23/2013 Office visit Rohini Eckert MD 11/23/2012 Office visit Kaia Kennedy SHREDDER OPERATOR 08/16/2012 Office visit Rohini Eckert MD 05/19/2012 Office visit Rohini Eckert MD 02/10/2012 Office visit Rohini Eckert MD 11/12/2011 Office visit Rohini Eckert MD 08/12/2011 Office visit Rohini Eckert MD 07/02/2011 Office visit Rohini Eckert MD 05/05/2011 Nurse visit Rohini Eckert MD 04/29/2011 Office visit Rohini Eckert MD
--- OUTSIDE RECORDS SUMMARY | 2018-10-13 06:45 | XMS REPORT ---
Author Author Calvin Britt [facility] Address [address] [place], [place] [id number] Care Team Providers Care Cuff Setter Name Role Phone Calvin Britt PCP Calvin Britt PreferredProvider Allergies and Adverse Reactions Name Reaction Notes INFLUENZA VIRUS VACCINE [place] pt is allergic to the generic Plan of Treatment Planned Activity Comments Planned Date Planned Time Plan/Goal Mammography; bilateral 09/09/2018 12:00 AM Thyroid stimulating hormone (TSH) 09/13/2018 12:00 AM [...] days Problem List Description Status Onset Allergic rhinitis Active CAD Active Chronic Obstructive Pulmonary Disease [...] AM COMPLETE CBC W/AUTO DIFF WBC Reviewed 09/14/2018 12:[address] THORAX W/DYE Returned [...] CVX Tdap 08/14/2014 sanofi pasteur PMC ADACEL [id number] Intramuscular Left Deltoid 08/14/2014 08/12/2012 115 History of Past Illness Name Date of Onset Comments Chronic Obstructive Pulmonary Disease CAD Allergic rhinitis Hyperlipidemia Hypertension Essential Hypertension Apr 29 2011 [...] 5:11PM Lung collapse Sep 23 2018 5:11PM Payers Insurance Name Company Name Plan Name Plan Number Policy Number Policy Group Number Start Date Medicare [facility] Medicare [facility] [id number] N/A [employer] [id number] N/A Railroad Medicare Railroad Medicare [id number] Friday, 2011 Railroad Medicare - Railroad Railroad Medicare [id number] N/A Medicare Part A Medicare Part A [id number] N/A Medico Insurance Company [employer]ico Insurance Company [id number] N/A Medicare Part A ZZZMedicare P A - Preventive [id number] N/A Medicare Part A Medicare - Lab/Xray [id number] N/A Medicare RHC Medicare RHC [id number] N/A History of Encounters Visit Date Visit Type Provider 09/13/2018 Office visit Calvin Britt MD 04/07/2018 Office visit Calvin Britt MD 02/03/2018 Office visit Calvin Britt MD 09/24/2017 Office visit Calvin Britt MD 05/09/2017 Office visit Haylee Yanes GIMP TACKER 02/23/2017 Procedures Ericjacey Dos Santos DO 01/19/2017 Office visit Emily Ortiz MD 12/20/2016 [facility] Inna Juarez MD 10/15/2016 Office visit [...] Ortiz MD 11/30/2013 Office visit Kaia Kennedy APRN 08/30/2013 Office visit Emily Ortiz MD 05/26/2013 Office visit Emily Ortiz MD 02/23/2013 Office visit Rohini Eckert MD 11/23/2012 Office visit Kaia Kennedy APRN 08/16/2012 Office visit Rohini Eckert MD 05/19/2012 Office visit Rohini Eckert MD 02/10/2012 Office visit Rohini Eckert MD 11/12/2011 Office visit Rohini Eckert MD 08/12/2011 Office visit Rohini Eckert MD 07/02/2011 Office visit Rohini Eckert MD 05/05/2011 Nurse visit Rohini Eckert MD 04/29/2011 Office visit Rohini Eckert MD
--- OUTSIDE RECORDS SUMMARY | 2018-10-13 06:46 | XMS REPORT ---
Author Author Calvin Britt [facility] Address [address] [place], [place] [id number] Care Team Providers Care Rail Express Clerk Name Role Phone Calvin Britt PCP Calvin Britt PreferredProvider Allergies and Adverse Reactions Name Reaction Notes INFLUENZA VIRUS VACCINE [place] pt is allergic to the generic Plan of Treatment Planned Activity Comments Planned Date Planned Time Plan/Goal Mammography; bilateral 09/09/2018 12:00 AM Computed tomography of chest with contrast 09/14/2018 12:00 AM Thyroid stimulating hormone (TSH) 09/13/2018 12:00 AM Comprehensive Metabolic Panel 11/30/2013 12:00 [...] route every 6 hours for 90 days Breo Ellipta 100-25 mcg/dose inhalation blister with device [...] AM COMPLETE CBC W/AUTO DIFF WBC Reviewed 09/13/2018 12:00 AM COMPLETE CBC W/AUTO DIFF [...] CVX Tdap 08/14/2014 sanofi pasteur PMC ADACEL [id number] Intramuscular Left Deltoid 08/14/2014 08/12/2012 115 History [...] Upper Pulmonary nodule Sep 14 2018 3:09PM Payers Insurance Name Company Name Plan Name Plan Number Policy Number Policy Group Number Start Date Medicare RHC Medicare RHC [id number] N/A [employer] [id number] N/A Railroad Medicare Railroad Medicare [id number] Friday, 2011 Railroad Medicare - Railroad Railroad Medicare [id number] N/A Medicare Part A Medicare Part A [id number] N/A [employer]ico Insurance Company [employer] [id number] N/A Medicare Part A ZZZMedicare P A - Preventive [id number] N/A Medicare Part A Medicare - Lab/Xray [id number] N/A Medicare RHC Medicare RHC [id number] N/A History of Encounters Visit Date Visit Type Provider 09/13/2018 Office visit Calvin Britt MD 04/07/2018 Office visit Calvin Britt MD 02/03/2018 Office visit Calvin Britt MD 09/24/2017 Office visit Calvin Britt MD 05/09/2017 Office visit Haylee Yanes TELEPHONE LINEMAN 02/23/2017 Procedures Eric Dos Santos DO 01/19/2017 Office visit Emily Ortiz MD 12/20/2016 [facility] Inna Juarez MD 10/15/2016 Office visit Emily [...] Ortiz MD 11/30/2013 Office visit Kaia Kennedy TELEPHONE LINEMAN 08/30/2013 Office visit Emily Ortiz MD 05/26/2013 Office visit Emily Ortiz MD 02/23/2013 Office visit Rohini Eckert MD 11/23/2012 Office visit Kaia Kennedy TELEPHONE LINEMAN 08/16/2012 Office visit Rohini Eckert MD 05/19/2012 Office visit Rohini Eckert MD 02/10/2012 Office visit Rohini Eckert MD 11/12/2011 Office visit Rohini Eckert MD 08/12/2011 Office visit Rohini Eckert MD 07/02/2011 Office visit Rohini Eckert MD 05/05/2011 Nurse visit Rohini Eckert MD 04/29/2011 Office visit Rohini Eckert MD
--- OUTSIDE RECORDS SUMMARY | 2018-10-13 06:48 | XMS REPORT ---
Author Author Calvin Britt [facility] Address [address] [place], [place] [address] Care Team Providers Care Hobbing Press Operator Name Role Phone Calvin Britt PCP Calvin Britt PreferredProvider Allergies and Adverse Reactions Name Reaction Notes INFLUENZA VIRUS VACCINE [place] pt is allergic to the generic Plan of Treatment Planned Activity Comments Planned Date Planned Time Plan/Goal Mammography; bilateral 09/09/2018 12:00 AM Thyroid stimulating hormone (TSH) 09/13/2018 12:00 AM Computed tomography of chest with contrast 09/14/2018 12:00 AM Comprehensive Metabolic Panel 11/30/2013 12:00 [...] CVX Tdap 08/14/2014 sanofi pasteur PMC ADACEL [id number] Intramuscular Left Deltoid 08/14/2014 08/12/2012 115 History [...] Number Start Date Medicare RHC Medicare RHC [id number] N/A [employer] [id number] N/A Railroad Medicare Railroad Medicare [id number] Friday, 2011 Railroad Medicare - Railroad Railroad Medicare [id number] N/A Medicare Part A Medicare Part A [id number] N/A [employer]ico Insurance Company [employer] Insurance Company [id number] N/A Medicare Part A ZZZMedicare P A - Preventive [id number] N/A Medicare Part A Medicare - Lab/Xray [id number] N/A Medicare RHC Medicare RHC [id number] N/A History of Encounters Visit Date Visit Type Provider 09/13/2018 Office visit Calvin Britt MD 04/07/2018 Office visit Calvin Britt MD 02/03/2018 Office visit Calvin Britt MD 09/24/2017 Office visit Calvin Britt MD 05/09/2017 Office visit Haylee Yanes PROGRAM HOST 02/23/2017 Procedures Eric Dos Santos DO 01/19/2017 [...] Ortiz MD 11/30/2013 Office visit Kaia Kennedy PROGRAM HOST 08/30/2013 Office visit Emily Ortiz MD 05/26/2013 Office visit Emily Ortiz MD 02/23/2013 Office visit Rohini Eckert MD 11/23/2012 Office visit Kaia Kennedy PROGRAM HOST 08/16/2012 Office visit Rohini Eckert MD 05/19/2012 Office visit Rohini Eckert MD 02/10/2012 Office visit Rohini Eckert MD 11/12/2011 Office visit Rohini Eckert MD 08/12/2011 Office visit Rohini Eckert MD 07/02/2011 Office visit Rohini Eckert MD 05/05/2011 Nurse visit Rohini Eckert MD 04/29/2011 Office visit Rohini Eckert MD
--- OUTSIDE RECORDS SUMMARY | 2018-10-13 06:49 | XMS REPORT ---
Author Author Calvin Britt [facility] Address [address] [place], [place] [id number] Care Team Providers Care Front Services Agent Name Role Phone Calvin Britt PCP Calvin Britt PreferredProvider Allergies and Adverse Reactions Name Reaction Notes INFLUENZA VIRUS VACCINE [place] pt is allergic to the generic Plan of Treatment Planned Activity Comments Planned Date Planned Time Plan/Goal Mammography; bilateral 09/09/2018 12:00 AM Comprehensive Metabolic Panel 11/30/2013 12:00 [...] once daily at bedtime for 30 days Name Start Date Expiration Date SIG Comments [...] HC BMI BSA BMI Percentile O2 Sat(%) 04/07/2018 10:49:00 AM 120 mmHg 64 mmHg 94 bpm 16 rpm 98.8 F 179 lbs 66 in 28.8911 kg/m 1.9445 m 96 % 02/03/2018 10:23:00 AM 126 mmHg 64 mmHg 76 bpm 16 rpm 98.2 F 180 lbs 66 in 29.05 kg/m2 1.95 m2 97 % 09/24/2017 11:10:00 AM 176 mmHg 82 mmHg 84 bpm 18 rpm 97.9 F 184.375 lbs 66 in 29.7586 kg/m 1.9734 m 95 % 05/09/2017 8:30:00 AM 120 mmHg 68 mmHg 74 bpm 18 rpm 99 F 174 lbs 66 in 28.08 kg/m2 1.92 m2 92 % 02/23/2017 9:02:00 AM 130 mmHg [...] F 180.125 lbs 67 in 28.21 kg/m2 1.97 m2 95 % 12/27/2014 10:21:00 AM 124 mmHg 70 mmHg 76 bpm 99.1 F 179.375 lbs 66 in 28.9516 kg/m 1.9465 m 94 % 09/26/2014 10:08:00 AM 112 mmHg 74 mmHg 81 bpm 98.4 F 179.125 lbs 66 in 28.91 kg/m2 1.95 m2 92 % 08/14/2014 3:43:00 PM 130 mmHg 64 mmHg 82 bpm 96.9 F 177.25 lbs 66 in 28.6086 kg/m 1.9349 m 96 % 07/25/2014 9:31:00 AM 122 mmHg 66 mmHg 102 bpm 99.5 F 178.5 lbs 66 in 28.81 kg/m2 1.94 m2 95 % 07/19/2014 1:30:00 PM 124 mmHg 68 mmHg 80 bpm 98.6 F 177.5 lbs 67 in 27.8001 kg/m 1.9509 m 95 % 06/05/2014 1:46:00 PM 122 mmHg [...] W/AUTO DIFF WBC Reviewed 05/26/2013 12:00 AM MAMMOGRAM BOTH BREASTS Reviewed [...] CVX Tdap 08/14/2014 sanofi pasteur PMC ADACEL [id number] Intramuscular Left Deltoid 08/14/2014 08/12/2012 115 History [...] for breast cancer Sep 09 2018 11:20AM Payers Insurance Name Company Name Plan Name Plan Number Policy Number Policy Group Number Start Date Medicare RHC Medicare RHC [id number] N/A [employer] [id number] N/A Railroad Medicare Railroad Medicare [id number] Friday, 2011 Railroad Medicare - Railroad Railroad Medicare [id number] N/A Medicare Part A Medicare Part A [id number] N/A [employer] Insurance Company [employer] Insurance Company [id number] N/A Medicare Part A ZZZMedicare P A - Preventive [id number] N/A Medicare Part A Medicare - Lab/Xray [id number] N/A Medicare RHC Medicare RHC [id number] N/A History of Encounters Visit Date Visit Type Provider 04/07/2018 Office visit Calvin Britt MD 02/03/2018 Office visit Calvin Britt MD 09/24/2017 Office visit Calvin Britt MD 05/09/2017 Office visit Haylee Yanes PHYSICAL DESIGN ENGINEER 02/23/2017 Procedures Eric Dos Santos DO 01/19/2017 Office visit Emily Ortiz MD 12/20/2016 Tania Juarez MD 10/15/2016 Office visit Emily Ortiz [...] Ortiz MD 11/30/2013 Office visit Kaia Kennedy PHYSICAL DESIGN ENGINEER 08/30/2013 Office visit Emily Ortiz MD 05/26/2013 Office visit Emily Ortiz MD 02/23/2013 Office visit Rohini Eckert MD 11/23/2012 Office visit Kaia Kennedy PHYSICAL DESIGN ENGINEER 08/16/2012 Office visit Rohini Eckert MD 05/19/2012 Office visit Rohini Eckert MD 02/10/2012 Office visit Rohini Eckert MD 11/12/2011 Office visit Rohini Eckert MD 08/12/2011 Office visit Rohini Eckert MD 07/02/2011 Office visit Rohini Eckert MD 05/05/2011 Nurse visit Rohini Eckert MD 04/29/2011 Office visit Rohini Eckert MD
--- OUTSIDE RECORDS SUMMARY | 2018-10-13 06:51 | XMS REPORT ---
Author Author Calvin Britt [facility] Address [address] [place], [place] [address] Care Team Providers Care Accounting Generalist Name Role Phone Calvin Britt PCP Calvin Britt PreferredProvider Allergies and Adverse Reactions Name Reaction Notes INFLUENZA VIRUS VACCINE [place] pt is allergic to the generic Plan of Treatment Planned Activity Comments Planned Date Planned Time Plan/Goal Comprehensive Metabolic Panel 11/30/2013 12:00 AM Rapid [...] each nostril by intranasal route once daily albuterol sulfate 2.5 mg /3 mL (0.083 %) inhalation solution for nebulization 10/29/2016 USE ONE VIAL IN NEBULIZER 4 TIMES DAILY fluoxetine 10 mg oral capsule 02/02/2018 TAKE ONE CAPSULE BY MOUTH ONCE DAILY Lunesta 3 mg oral tablet 04/07/2018 06/06/2018 take 1 tablet (3 mg) by oral route once daily at bedtime for 30 days Augmentin 875-125 mg oral tablet 04/07/2018 04/14/2018 take 1 tablet by oral route every 12 hours for 7 days Name Start Date Expiration Date SIG [...] by oral route 3 times per week Synthroid 25 mcg oral tablet 12/27/2014 02/25/2015 take 1 tablet (25 mcg) by oral route once daily for 30 days Medrol (Reuben) 4 mg oral tablets,dose pack 12/27/2014 01/02/2015 take as directed for 6 days Advair Diskus 500-50 mcg/dose inhalation blister with device 04/25/2015 10/22/2015 take 1 puff by inhalation route 2 times a day for 30 days Synthroid 25 mcg oral tablet 11/26/2015 [...] NEBULIZER 4 TIMES DAILY. Dx: COPD J44.9 Discontinued Name Start Date Discontinued Date SIG [...] same time each day for 30 days Problem List Description Status [...] CVX Tdap 08/14/2014 sanofi pasteur PMC ADACEL [id number] Intramuscular Left Deltoid 08/14/2014 08/12/2012 115 History [...] Upper Respiratory Infection Apr 07 2018 10:53AM Payers Insurance Name Company Name Plan Name Plan Number Policy Number Policy Group Number Start Date Medicare RHC Medicare RHC [id number] N/A [employer] [id number] N/A Railroad Medicare Railroad Medicare [id number] Friday, 2011 Railroad Medicare - Railroad Railroad Medicare [id number] N/A Medicare Part A Medicare Part A [id number] N/A [employer] Insurance Company [employer] Company [id number] N/A Medicare Part A ZZZMedicare P A - Preventive [id number] N/A Medicare Part A Medicare - Lab/Xray [id number] N/A Medicare RHC Medicare RHC [id number] N/A History of Encounters Visit Date Visit Type Provider 04/07/2018 Office visit Cavlin Britt MD 02/03/2018 Office visit Calvin Britt MD 09/24/2017 Office visit Calvin Britt MD 05/09/2017 Office visit Haylee Yanes COMMERCIAL LEASING AGENT 02/23/2017 Procedures Eric Dos Santos DO 01/19/2017 Office visit Emily Ortiz MD 12/20/2016 [facility] Inna Juarez MD 10/15/2016 Office visit Emily [...] Ortiz MD 11/30/2013 Office visit Kaia Kennedy COMMERCIAL LEASING AGENT 08/30/2013 Office visit Emily Ortiz MD 05/26/2013 Office visit Emily Ortiz MD 02/23/2013 Office visit Rohini Eckert MD 11/23/2012 Office visit Kaia Kennedy COMMERCIAL LEASING AGENT 08/16/2012 Office visit Rohini Eckert MD 05/19/2012 Office visit Rohini Eckert MD 02/10/2012 Office visit Rohini Eckert MD 11/12/2011 Office visit Rohini Eckert MD 08/12/2011 Office visit Rohini Eckert MD 07/02/2011 Office visit Rohini Eckert MD 05/05/2011 Nurse visit Rohini Eckert MD 04/29/2011 Office visit Rohini Eckert MD
--- OUTSIDE RECORDS SUMMARY | 2018-10-13 06:53 | XMS REPORT ---
Author Author Calvin Britt [facility] Address [address] [place], [place] [id number] Care Team Providers Care District Court Bailiff Name Role Phone Calvin Britt PCP SobiaEmily carpio PreferredProvider Allergies and Adverse Reactions Name Reaction [...] TAKE ONE CAPSULE BY MOUTH ONCE DAILY Name Start Date Expiration Date SIG Comments [...] COPD J44.9 Augmentin 875-125 mg oral tablet 02/03/2018 02/10/2018 take 1 tablet by oral route every [...] route every 6 hours for 90 days Brefreddy Ellipta 100-25 mcg/dose inhalation blister with device 01/11/2016 01/11/2016 inhale 1 puff by inhalation route once daily at the same time each day for 30 days Problem List Description Status Onset Allergic rhinitis Active CAD Active Chronic Obstructive Pulmonary Disease Active Hyperlipidemia Active Hypertension Active Vital Signs Date Time BP-Sys(mm[Hg] BP-Dilia(mm[Hg]) HR(bpm) RR(rpm) Temp WT HT HC BMI BSA BMI Percentile O2 Sat(%) 02/03/2018 10:23:00 AM 126 mmHg 64 mmHg [...] 4.73 HGB 13.80 g/dLHCT 42.40 %MCV 90.0 [facility] 29.20 [facility] 32.[facility] g/dLRDW [place] 45 RDW CV 13.70 [...] CVX Tdap 08/14/2014 sanofi pasteur PMC ADACEL [id number] Intramuscular Left Deltoid 08/14/2014 08/12/2012 115 History [...] Risk for falls Mar 23 2018 8:26AM Payers Insurance Name Company Name Plan Name Plan Number Policy Number Policy Group Number Start Date Medicare RHC Medicare RHC [id number] N/A [employer] [id number] N/A Railroad Medicare Railroad Medicare [id number] Friday, 2011 Railroad Medicare - Railroad Railroad Medicare [id number] N/A Medicare Part A Medicare Part A [id number] N/A [employer] Company [employer] [id number] N/A Medicare Part A ZZZMedicare P A - Preventive [id number] N/A Medicare Part A Medicare - Lab/Xray [id number] N/A Medicare RHC Medicare RHC [id number] N/A History of Encounters Visit Date Visit Type Provider 02/03/2018 Office visit Calvin Britt MD 09/24/2017 Office visit Calvin Britt MD 05/09/2017 Office visit Haylee Yanes TRANSIT SURVEY WORKER 02/23/2017 Procedures Eric Raya DO 01/19/2017 Office visit Emily Ortiz MD 12/20/2016 [facility] Isha Juarez MD 10/15/2016 Office visit Emily Ortiz [...] Ortiz MD 11/30/2013 Office visit Kaia Kennedy TRANSIT SURVEY WORKER 08/30/2013 Office visit Emily Ortiz MD 05/26/2013 Office visit Emily Ortiz MD 02/23/2013 Office visit Rohini Eckert MD 11/23/2012 Office visit Kaia Kennedy TRANSIT SURVEY WORKER 08/16/2012 Office visit Rohini Eckert MD 05/19/2012 Office visit Rohini Eckert MD 02/10/2012 Office visit Rohini Eckert MD 11/12/2011 Office visit Rohini Eckert MD 08/12/2011 Office visit Rohini Eckert MD 07/02/2011 Office visit Rohini Eckert MD 05/05/2011 Nurse visit Rohini Eckert MD 04/29/2011 Office visit Rohini Eckert MD
--- OUTSIDE RECORDS SUMMARY | 2018-10-13 06:54 | XMS REPORT ---
Author Author Calvin Britt [facility] Address [address] [place], [place] [id number] Care Team Providers Care Wellness Health Coach Name Role Phone Calvin Britt PCP SobiaEmily [...] TAKE ONE CAPSULE BY MOUTH ONCE DAILY Augmentin 875-125 mg oral tablet 02/03/2018 02/10/2018 [...] 4.73 HGB 13.80 g/dLHCT 42.40 %MCV 90.0 [facility] 32.[facility] g/dLRDW [place] 45 RDW CV 13.70 [...] mg/dLTOT CHOL/HDL 3.0 LDL (CALC) 82.0 mg/dL History Of Immunizations Name Date Admin Mfg Name Mfg Code Trade Name Lot# Route Inj Vis Given Vis Pub CVX Tdap 08/14/2014 sanofi pasteur PMC ADACEL [id number] Intramuscular Left Deltoid 08/14/2014 08/12/2012 115 History [...] recurrence not specified Feb 03 2018 10:27AM Payers Insurance Name Company Name Plan Name Plan Number Policy Number Policy Group Number Start Date Medicare RHC Medicare RHC [id number] N/A [employer] [id number] N/A Railroad Medicare Railroad Medicare [id number] Friday, 2011 Railroad Medicare - Railroad Railroad Medicare [id number] N/A Medicare Part A Medicare Part A [id number] N/A [employer] Insurance Company [employer] [id number] N/A Medicare Part A ZZZMedicare P A - Preventive [id number] N/A Medicare Part A Medicare - Lab/Xray [id number] N/A Medicare RHC Medicare RHC [id number] N/A History of Encounters Visit Date Visit Type Provider 02/03/2018 Office visit Calvin Britt MD 09/24/2017 Office visit Calvin Britt MD 05/09/2017 Office visit Haylee Yanes LITERACY SPECIALIST 02/23/2017 Procedures Eric Dos Santos DO 01/19/2017 Office visit Emily Ortiz MD 12/20/2016 [facility] Inna Juarez MD 10/15/2016 Office visit Emily [...] Ortiz MD 11/30/2013 Office visit Kaia Kennedy LITERACY SPECIALIST 08/30/2013 Office visit Emily Ortiz MD 05/26/2013 [...]
--- OUTSIDE RECORDS SUMMARY | 2018-10-13 06:56 | XMS REPORT ---
Author Author Calvin Britt [facility] Address [address] [place], [place] [address] Care Team Providers Care Assistant Teaching Professor Name Role Phone Calvin Britt PCP SobiaEmily [...] 4.73 HGB 13.80 g/dLHCT 42.40 %MCV 90.0 [facility] 29.[facility] 32.[place] g/dLRDW [place] 45 RDW CV 13.70 [...] CVX Tdap 08/14/2014 sanofi pasteur PMC ADACEL [id number] Intramuscular Left Deltoid 08/14/2014 08/12/2012 115 History [...] Number Start Date Medicare RHC Medicare RHC [id number] N/A [employer] [id number] N/A Railroad Medicare Railroad Medicare [id number] Friday, 2011 Railroad Medicare - Railroad Railroad Medicare [id number] N/A Medicare Part A Medicare Part A [id number] N/A [employer] Company [employer] [id number] N/A Medicare Part A ZZZMedicare P A - Preventive [id number] N/A Medicare Part A Medicare - Lab/Xray [id number] N/A Medicare RHC Medicare RHC [id number] N/A History of Encounters Visit Date Visit Type Provider 02/03/2018 Office visit Calvin Britt MD 09/24/2017 Office visit Calvin Britt MD 05/09/2017 Office visit Haylee Yanes DISC PAD GRINDER 02/23/2017 Procedures Eric Dos Santos DO 01/19/2017 Office visit Emily Ortiz MD 12/20/2016 [facility] Inna Juarez MD 10/15/2016 Office visit [...] Ortiz MD 11/30/2013 Office visit Kaia Kennedy DISC PAD GRINDER 08/30/2013 Office visit Emily Ortiz MD 05/26/2013 [...]
--- OUTSIDE RECORDS SUMMARY | 2018-10-13 06:57 | XMS REPORT ---
Author Author Calvin Britt [facility] Address [address] [place], [place] [address] Care Team Providers Care Alcohol Rubber Name Role Phone Calvin Britt PCP Sobiashirin Emily PreferredProvider Allergies and Adverse Reactions Name Reaction Notes INFLUENZA VIRUS VACCINE [place] pt is allergic to the generic Plan of Treatment Planned Activity Comments Planned Date Planned Time Plan/Goal Mammography; bilateral 09/24/2017 12:00 AM Comprehensive Metabolic Panel 11/30/2013 12:00 [...] ONE VIAL IN NEBULIZER 4 TIMES DAILY Name Start Date Expiration Date SIG [...] oral route once daily for 90 days albuterol sulfate 2.5 mg /3 mL (0.083 %) inhalation solution for nebulization 10/29/2016 12/30/2016 USE ONE VIAL IN NEBULIZER 4 TIMES DAILY. Dx: COPD J44.9 fluoxetine 10 mg oral capsule 01/19/2017 01/19/2017 TAKE ONE CAPSULE BY MOUTH ONCE DAILY Advair Diskus 500-50 mcg/dose inhalation blister with device 04/02/2017 04/02/2017 INHALE ONE DOSE BY MOUTH TWICE DAILY Tamiflu 75 mg oral capsule 05/09/2017 take 1 capsule (75 mg) by oral route 2 times per day for 5 days levothyroxine 25 mcg oral tablet 06/29/2017 06/29/2017 TAKE ONE TABLET BY MOUTH ONCE DAILY Discontinued Name Start Date Discontinued Date SIG [...] route every 6 hours for 90 days Radhao Ellipta 100-25 mcg/dose inhalation blister with device 01/11/2016 01/11/2016 inhale 1 puff by inhalation route once daily at the same time each day for 30 days Problem List Description Status Onset Allergic rhinitis Active CAD Active Chronic Obstructive Pulmonary Disease Active Hyperlipidemia Active Hypertension Active Vital Signs Date Time BP-Sys(mm[Hg] BP-Dilia(mm[Hg]) HR(bpm) RR(rpm) Temp WT HT HC BMI BSA BMI Percentile O2 Sat(%) 09/24/2017 11:10:00 AM 176 mmHg 82 mmHg [...] 12:00 AM ASSAY THYROID STIM HORMONE Returned 11/16/2012 12:00 AM COMPREHEN METABOLIC PANEL [...] 4.72 HGB 13.80 g/dLHCT 41.60 %MCV 88.0 [facility] 29.20 pgHC 33.20 g/dLRDW SD 44 RDW CV 13.50 [...] CVX Tdap 08/14/2014 sanofi pasteur PMC ADACEL [id number] Intramuscular Left Deltoid 08/14/2014 08/12/2012 115 History [...] 11:15AM Hypothyroidism, Acquired Sep 24 2017 11:15AM Payers Insurance Name Company Name Plan Name Plan Number Policy Number Policy Group Number Start Date Medicare RHC Medicare RHC [id number] N/A [employer] [id number] N/A Railroad Medicare Railroad Medicare [id number] Friday, 2011 Railroad Medicare - Railroad Railroad Medicare [id number] N/A Medicare Part A Medicare Part A [id number] N/A [employer] Company [employer] [id number] N/A Medicare Part A ZZZMedicare P A - Preventive [id number] N/A Medicare Part A Medicare - Lab/Xray [id number] N/A History of Encounters Visit Date Visit Type Provider 09/24/2017 Office visit Calvin Britt MD 05/09/2017 Office visit Haylee Yanes MANUFACTURING ADVISOR 02/23/2017 Procedures Ericjacey Dos Santos DO 01/19/2017 Office visit Emily Ortiz MD 12/20/2016 [facility] Inna Juarez MD 10/15/2016 Office [...] Ortiz MD 11/30/2013 Office visit Kaia Kennedy MANUFACTURING ADVISOR 08/30/2013 Office visit Emily Ortiz MD 05/26/2013 Office visit Emily Ortiz MD 02/23/2013 Office visit Rohini Eckert MD 11/23/2012 Office visit Kaia Kennedy MANUFACTURING ADVISOR 08/16/2012 Office visit Rohini Eckert MD 05/19/2012 Office visit Rohini Eckert MD 02/10/2012 Office visit Rohini Eckert MD 11/12/2011 Office visit Rohini Eckert MD 08/12/2011 Office visit Rohini Eckert MD 07/02/2011 Office visit Rohini Eckert MD 05/05/2011 Nurse visit Rohini Eckert MD 04/29/2011 Office visit Rohini Eckert MD
--- OUTSIDE RECORDS SUMMARY | 2018-10-13 06:59 | XMS REPORT ---
Author Author Calvin Britt [facility] Address [address] [place], [place] [id number] Care Team Providers Care Electric Powerline Examiner Name Role Phone Calvin Britt PCP Sobiashirin [...] 4.72 HGB 13.80 g/dLHCT 41.60 %MCV 88.0 [facility] 29.20 pgHC 33.20 g/dLRDW SD 44 RDW [...] CVX Tdap 08/14/2014 sanofi pasteur PMC ADACEL [id number] Intramuscular Left Deltoid 08/14/2014 08/12/2012 115 History [...] for breast cancer Sep 24 2017 11:48AM Payers Insurance Name Company Name Plan Name Plan Number Policy Number Policy Group Number Start Date Medicare RHC Medicare RHC [id number] N/A [employer] [id number] N/A Railroad Medicare Railroad Medicare [id number] Friday, 2011 Railroad Medicare - Railroad Railroad Medicare [id number] N/A Medicare Part A Medicare Part A [id number] N/A [employer] Company [id number] Insurance [employer] [id number] N/A Medicare Part A ZZZMedicare P A - Preventive [id number] N/A Medicare Part A Medicare - Lab/Xray [id number] N/A History of Encounters Visit Date Visit Type Provider 09/24/2017 Office visit Calvin Britt MD 05/09/2017 Office visit Haylee Yanes SEPTIC PUMP TRUCK DRIVER 02/23/2017 Procedures Ericjacey Dos Santos DO 01/19/2017 Office visit Emily Ortiz MD 12/20/2016 [facility] Inna Juarez MD 10/15/2016 Office visit Emily [...] Ortiz MD 11/30/2013 Office visit Kaia Kennedy SEPTIC PUMP TRUCK DRIVER 08/30/2013 Office visit Emily Ortiz MD 05/26/2013 Office visit Emily Ortiz MD 02/23/2013 Office visit Rohini Eckert MD 11/23/2012 Office visit Kaia Kennedy SEPTIC PUMP TRUCK DRIVER 08/16/2012 Office visit Rohini Eckert MD 05/19/2012 Office visit Rohini Eckert MD 02/10/2012 Office visit Rohini Eckert MD 11/12/2011 Office visit Rohini Eckert MD 08/12/2011 Office visit Rohini Eckert MD 07/02/2011 Office visit Rohini Eckert MD 05/05/2011 Nurse visit Rohini Eckert MD 04/29/2011 Office visit Rohini Eckert MD
--- OUTSIDE RECORDS SUMMARY | 2018-10-13 07:00 | XMS REPORT ---
Author Author Haylee Yanes Organization [facility] Address [address] [place], [place] [address] Care Team Providers Care Brand Director Name Role Phone Haylee Yanes PCP Emily Ortiz PreferredProvider Allergies and Adverse Reactions Name Reaction Notes INFLUENZA VIRUS VACCINE [place] pt is allergic to the generic Plan of Treatment Planned Activity Comments Planned Date Planned Time Plan/Goal CBC with Auto 07/13/2017 12:00 AM CMP (comprehensive metabolic panel) 07/13/2017 12:00 AM Lipid profile 07/13/2017 12:00 AM Thyroid stimulating hormone (TSH) 07/13/2017 12:00 AM Comprehensive Metabolic Panel 11/30/2013 12:00 [...] ONE VIAL IN NEBULIZER 4 TIMES DAILY Tamiflu 75 mg oral capsule 05/09/2017 take 1 capsule (75 mg) by oral route 2 times per day for 5 days Name Start Date Expiration Date SIG [...] INHALE ONE DOSE BY MOUTH TWICE DAILY levothyroxine 25 mcg oral tablet 06/29/2017 06/29/2017 [...] HC BMI BSA BMI Percentile O2 Sat(%) 05/09/2017 8:30:00 AM 120 mmHg 68 mmHg 74 bpm 18 rpm 99 F 174 lbs 66 in 28.084 kg/m 1.9171 m 92 % 02/23/2017 9:02:00 AM [...] AM COMPLETE CBC W/AUTO DIFF WBC Reviewed 11/16/2012 12:00 AM COMPREHEN METABOLIC PANEL Reviewed [...] CVX Tdap 08/14/2014 sanofi pasteur PMC ADACEL [id number] Intramuscular Left Deltoid 08/14/2014 08/12/2012 115 History [...] 9:29AM Hypothyroidism, Acquired Jul 13 2017 9:29AM Payers Insurance Name Company Name Plan Name Plan Number Policy Number Policy Group Number Start Date Medicare RHC Medicare RHC [id number] N/A [employer] [id number] N/A Railroad Medicare Railroad Medicare [id number] Friday, 2011 Railroad Medicare - Railroad Railroad Medicare [id number] N/A Medicare Part A Medicare Part A [id number] N/A [employer] Company [employer] [id number] N/A Medicare Part A ZZZMedicare P A - Preventive [id number] N/A Medicare Part A Medicare - Lab/Xray [id number] N/A History of Encounters Visit Date Visit Type Provider 05/09/2017 Office visit Haylee LMarty Yanes TRUCK DRIVER TEAMSTER 02/23/2017 Procedures Eric Dos Santos DO 01/19/2017 Office visit Emily Ortiz MD 12/20/2016 [facility] Inna Juarez MD 10/15/2016 Office [...] Ortiz MD 11/30/2013 Office visit Kaia Kennedy TRUCK DRIVER TEAMSTER 08/30/2013 Office visit Emily Ortiz MD 05/26/2013 Office visit Emily Ortiz MD 02/23/2013 Office visit Rohini Eckert MD 11/23/2012 Office visit Kaia Kennedy TRUCK DRIVER TEAMSTER 08/16/2012 Office visit Rohini Eckert MD 05/19/2012 Office visit Rohini Eckert MD 02/10/2012 Office visit Rohini Eckert MD 11/12/2011 Office visit Rohini Eckert MD 08/12/2011 Office visit Rohini Eckert MD 07/02/2011 Office visit Rohini Eckert MD 05/05/2011 Nurse visit Rohini Eckert MD 04/29/2011 Office visit Rohini Eckert MD
--- OUTSIDE RECORDS SUMMARY | 2018-10-13 07:02 | XMS REPORT ---
Author Author Emily Ortiz [facility] Address [address] [place], [place] [id number] Care Team Providers Care Fancy Needleworker Name Role Phone Emily Ortiz PCP Allergies and Adverse Reactions Name Reaction Notes INFLUENZA VIRUS VACCINE [place] pt is allergic to the generic Plan of Treatment Planned Activity Comments Planned Date Planned Time Plan/Goal COMPREHEN METABOLIC PANEL 11/30/2013 12:00 AM INFLUENZA A/B AG EIA 07/25/2014 12:00 AM CYTOPATH C/V THIN LAYER 07/19/2014 12:00 AM Medications Active Name Start Date Estimated Completion Date SIG Comments Lipitor 80 mg oral tablet take 1 tablet (80 mg) by oral route once daily triamterene-hydrochlorothiazid 75-50 mg oral tablet take 1 tablet by oral route once daily triamcinolone acetonide 55 mcg nasal aerosol,spray spray 1 spray in each nostril by intranasal route once daily triamcinolone acetonide 55 mcg nasal aerosol,spray spray 1 spray in each nostril by intranasal route once daily fluoxetine 10 mg oral capsule 08/02/2014 07/28/2015 TAKE ONE CAPSULE BY MOUTH EVERY DAY ipratropium bromide 0.02 % inhalation solution 09/26/2014 03/19/2016 inhale 2.5 milliliters (500 mcg) via nebulizer by inhalation route every 6 hours for 90 days Synthroid 25 mcg oral tablet 02/12/2015 take 1 tablet (25 mcg) by oral route once daily for 30 days Advair Diskus 500-50 mcg/dose inhalation blister with device 04/25/2015 10/22/2015 take 1 puff by inhalation route 2 times a day for 30 days Name Start Date Expiration [...] 01/02/2015 take as directed for 6 days albuterol sulfate 2.5 mg /3 mL (0.083 %) inhalation solution for nebulization 02/15/2015 04/18/2015 USE ONE VIAL IN NEBULIZER 4 TIMES DAILY Discontinued Name Start Date Discontinued Date [...] in the morning and evening to expensive Problem List Description Status Onset Allergic rhinitis Active CAD Active Chronic Obstructive Pulmonary Disease Active Hyperlipidemia Active Hypertension Active Vital Signs Date Time BP-Sys(mm[Hg] BP-Dilia(mm[Hg]) HR(bpm) RR(rpm) Temp WT HT HC BMI BSA BMI Percentile O2 Sat(%) 03/21/2015 10:35:00 AM 128 mmHg 64 mmHg [...] 98 % Social History Name Description Comments High school graduate Tobacco Former smoker Denies illicit substance abuse Active but no formal exercise retired Did not serve in Children Lives with spouse History of Procedures Date Ordered Description Order Status 12/21/2014 12:00 AM COMPLETE CBC W/AUTO DIFF WBC Returned 12/21/2014 12:00 AM COMPREHEN METABOLIC PANEL Returned 12/21/2014 12:00 AM LIPID PANEL Returned 03/16/2015 12:00 AM COMPLETE CBC W/AUTO DIFF WBC Returned 03/16/2015 12:00 AM COMPREHEN METABOLIC PANEL Returned 03/16/2015 12:00 AM LIPID PANEL Returned 04/29/2011 12:00 AM COMPREHEN METABOLIC PANEL Returned 04/29/2011 12:00 AM LIPID PANEL Returned 04/29/2011 12:00 AM COMPLETE CBC W/AUTO DIFF WBC Returned 07/02/2011 12:00 AM COMPREHEN METABOLIC PANEL Returned 07/02/2011 12:00 AM LIPID PANEL Returned 08/12/2011 12:00 AM COMPREHEN METABOLIC PANEL Returned 08/12/2011 12:00 AM LIPID PANEL Returned 11/12/2011 12:00 AM COMPREHEN METABOLIC PANEL Returned 11/12/2011 12:00 AM LIPID PANEL Returned 02/10/2012 12:00 AM COMPREHEN METABOLIC PANEL Returned 02/10/2012 12:00 AM LIPID PANEL Returned 02/10/2012 12:00 AM COMPLETE CBC W/AUTO DIFF WBC Returned 05/19/2012 12:00 AM COMPREHEN METABOLIC PANEL Returned 05/19/2012 12:00 AM LIPID PANEL Returned 05/19/2012 12:00 AM COMPLETE CBC W/AUTO DIFF WBC Returned 11/16/2012 12:00 AM COMPREHEN METABOLIC PANEL Returned 11/16/2012 12:00 AM LIPID PANEL Returned 11/16/2012 12:00 AM COMPLETE CBC W/AUTO DIFF WBC Returned 02/23/2013 12:00 AM COMPREHEN METABOLIC PANEL Returned 02/23/2013 12:00 AM LIPID PANEL Returned 02/23/2013 12:00 AM COMPLETE CBC W/AUTO DIFF WBC Returned 05/26/2013 12:00 AM COMPREHEN METABOLIC PANEL Returned 05/26/2013 12:00 AM LIPID PANEL Returned 05/26/2013 12:00 AM COMPLETE CBC W/AUTO DIFF WBC Returned 05/26/2013 12:00 AM MAMMOGRAM BOTH BREASTS Reviewed 08/26/2013 12:00 AM COMPLETE CBC W/AUTO DIFF WBC Returned 08/26/2013 12:00 AM COMPREHEN METABOLIC PANEL Returned 08/26/2013 12:00 AM LIPID PANEL Returned 08/26/2013 12:00 AM MICROALBUMIN SEMIQUANT Returned 08/30/2013 12:00 AM Shoulder Min 2Views - MOB Reviewed 09/08/2013 12:00 AM MRI JOINT UPR EXTREM W/O DYE Returned 11/30/2013 12:00 AM LIPID PANEL Returned 11/30/2013 12:00 AM COMPLETE CBC W/AUTO DIFF WBC Returned 03/07/2014 12:00 AM COMPLETE CBC W/AUTO DIFF WBC Returned 03/07/2014 12:00 AM COMPREHEN METABOLIC PANEL Returned 03/07/2014 12:00 AM LIPID PANEL Returned 07/04/2014 12:00 AM MAMMOGRAM SCREENING Returned 08/14/2014 12:00 AM IMMUNIZATION ADMIN Reviewed 08/14/2014 12:00 AM TDAP VACCINE 7 YRS/> IM Reviewed 09/25/2014 12:00 AM COMPLETE CBC W/AUTO DIFF WBC Returned 09/25/2014 12:00 AM COMPREHEN METABOLIC PANEL Returned 09/25/2014 12:00 AM LIPID PANEL Returned 09/25/2014 12:00 AM ASSAY THYROID STIM HORMONE Returned Results Summary Data and Description Results 04/29/2011 10:05 AM Colonoscopy-Women and Men over 50 Declined Mammogram -Women over 40 Normal Pap Smear Declined 05/05/2011 8:35 AM WBC 5.6 RBC 4.79 HGB 14.0 g/dLHCT 42.70 %MCV 89.0 fLMCH 29.20 pgMCHC 32.80 g/dLRDW CV 13.70 %MPV 9.80 fLPLT 214 %NEUT 55.90 %%LYMP 29.40 %%MONO 9.30 %%EOS 5.0 %%BASO 0.40 %#NEUT 3.11 #LYMP 1.64 #MONO 0.52 #EOS 0.28 #BASO 0.02 GLUCOSE 91.0 mg/dLSODIUM 143.0 mmol/LPOTASSIUM 4.10 mmol/LCHLORIDE 107.0 mmol/LCO2 29.0 mmol/LBUN 26.0 mg/dLCREATININE 1.20 mg/dLSGOT/AST 21.0 IU/LSGPT/ALT 28.0 IU/LALK PHOS 127.0 IU/LTOTAL PROTEIN 6.40 g/dLALBUMIN 4.30 g/dLTOTAL BILI 0.40 mg/dLCALCIUM 9.70 mg/dLeGFR 45 TRIGLYCERIDES 95.0 mg/dLCHOLESTEROL 139.0 mg/dLHDL 42.0 mg/dLLDL (CALC) 78.0 mg/dL 08/08/2011 8:25 AM GLUCOSE 94.0 mg/dLSODIUM 141.0 mmol/LPOTASSIUM 3.80 mmol/LCHLORIDE 105.0 mmol/LCO2 26.0 mmol/LBUN 35.0 mg/dLCREATININE 1.20 mg/dLSGOT/AST 21.0 IU/LSGPT/ALT 26.0 IU/LALK PHOS 130.0 IU/LTOTAL PROTEIN 6.80 g/dLALBUMIN 4.20 g/dLTOTAL BILI 0.50 mg/dLCALCIUM 9.50 mg/dLeGFR 45 TRIGLYCERIDES 124.0 mg/dLCHOLESTEROL 179.0 mg/dLHDL 46.0 mg/dLLDL (CALC) 108.0 mg/dL 11/07/2011 8:30 AM GLUCOSE 94.0 mg/dLSODIUM 142.0 mmol/LPOTASSIUM 3.80 mmol/LCHLORIDE 107.0 mmol/LCO2 27.0 mmol/LBUN 17.0 mg/dLCREATININE 0.90 mg/dLSGOT/AST 19.0 IU/LSGPT/ALT 27.0 IU/LALK PHOS 127.0 IU/LTOTAL PROTEIN 6.50 g/dLALBUMIN 4.0 g/dLTOTAL BILI 0.30 mg/dLCALCIUM 9.40 mg/dLeGFR 60 TRIGLYCERIDES 174.0 mg/dLCHOLESTEROL 164.0 mg/dLHDL 46.0 mg/dLLDL (CALC) 83.0 mg/dL 02/07/2012 8:15 AM GLUCOSE 87.0 mg/dLSODIUM 141.0 mmol/LPOTASSIUM 3.80 mmol/LCHLORIDE 106.0 mmol/LCO2 28.0 mmol/LBUN 20.0 mg/dLCREATININE 1.0 mg/dLSGOT/AST 22.0 IU/LSGPT/ALT 32.0 IU/LALK PHOS 144.0 IU/LTOTAL PROTEIN 6.70 g/dLALBUMIN 4.10 g/dLTOTAL BILI 0.40 mg/dLCALCIUM 9.70 mg/dLeGFR 56 TRIGLYCERIDES 131.0 mg/dLCHOLESTEROL 151.0 mg/dLHDL 48.0 mg/dLLDL (CALC) 77.0 mg/dL 05/10/2012 8:20 AM WBC 6.1 RBC 5.20 HGB 15.40 g/dLHCT 45.70 %MCV 88.0 fLMCH 29.60 pgMCHC 33.70 g/dLRDW CV 13.60 %MPV 9.50 fLPLT 234 %NEUT 57.80 %%LYMP 27.30 %%MONO 7.20 %%EOS 7.20 %%BASO 0.50 %#NEUT 3.50 #LYMP 1.66 #MONO 0.44 #EOS 0.44 #BASO 0.03 GLUCOSE 89.0 mg/dLSODIUM 143.0 mmol/LPOTASSIUM 3.50 mmol/LCHLORIDE 105.0 mmol/LCO2 27.0 mmol/LBUN 27.0 mg/dLCREATININE 1.10 mg/dLSGOT/AST 21.0 IU/LSGPT/ALT 30.0 IU/LALK PHOS 153.0 IU/LTOTAL PROTEIN 7.10 g/dLALBUMIN 4.20 g/dLTOTAL BILI 0.40 mg/dLCALCIUM 10.20 mg/dLeGFR 50 TRIGLYCERIDES 115.0 mg/dLCHOLESTEROL 180.0 mg/dLHDL 51.0 mg/dLLDL (CALC) 106.0 mg/dL 08/12/2012 8:45 AM WBC 6.1 RBC 4.91 HGB 14.40 g/dLHCT 43.40 %MCV 88.0 fLMCH 29.30 pgMCHC 33.20 g/dLRDW CV 13.70 %MPV 9.70 fLPLT 220 %NEUT 54.30 %%LYMP 29.80 %%MONO 8.50 %%EOS 6.90 %%BASO 0.50 %#NEUT 3.32 #LYMP 1.82 #MONO 0.52 #EOS 0.42 #BASO 0.03 GLUCOSE 90.0 mg/dLSODIUM 143.0 mmol/LPOTASSIUM 3.80 mmol/LCHLORIDE 104.0 mmol/LCO2 27.0 mmol/LBUN 28.0 mg/dLCREATININE 1.10 mg/dLSGOT/AST 20.0 IU/LSGPT/ALT 25.0 IU/LALK PHOS 123.0 IU/LTOTAL PROTEIN 6.80 g/dLALBUMIN 4.0 g/dLTOTAL BILI 0.50 mg/dLCALCIUM 10.10 mg/dLeGFR 50 TRIGLYCERIDES 98.0 mg/dLCHOLESTEROL 157.0 mg/dLHDL 49.0 mg/dLLDL (CALC) 88.0 mg/dL 11/18/2012 8:58 AM WBC 5.4 RBC 4.72 HGB 13.80 g/dLHCT 41.60 %MCV 88.0 fLMCH 29.20 pgMCHC 33.20 g/dLRDW CV 13.50 %MPV 9.70 fLPLT 198 %NEUT 56.30 %%LYMP 31.0 %%MONO 6.70 %%EOS 5.60 %%BASO 0.40 %#NEUT 3.02 #LYMP 1.66 #MONO 0.36 #EOS 0.30 #BASO 0.02 GLUCOSE 97.0 mg/dLSODIUM 143.0 mmol/LPOTASSIUM 4.0 mmol/LCHLORIDE 107.0 mmol/LCO2 28.0 mmol/LBUN 22.0 mg/dLCREATININE 1.0 mg/dLSGOT/AST 19.0 IU/LSGPT/ALT 22.0 IU/LALK PHOS 113.0 IU/LTOTAL PROTEIN 6.10 g/dLALBUMIN 3.80 g/dLTOTAL BILI 0.50 mg/dLCALCIUM 9.70 mg/dLeGFR 55 TRIGLYCERIDES 90.0 mg/dLCHOLESTEROL 130.0 mg/dLHDL 46.0 mg/dLLDL (CALC) 66.0 mg/dL 02/21/2013 8:25 AM WBC 6.6 RBC 4.78 HGB 13.90 g/dLHCT 42.10 %MCV 88.0 fLMCH 29.10 pgMCHC 33.0 g/dLRDW CV 14.50 %MPV 9.70 fLPLT 260 %NEUT 56.30 %%LYMP 27.50 %%MONO 7.30 %%EOS 8.40 %%BASO 0.50 %#NEUT 3.71 #LYMP 1.81 #MONO 0.48 #EOS 0.55 #BASO 0.03 TRIGLYCERIDES 136.0 mg/dLCHOLESTEROL 178.0 mg/dLHDL 55.0 mg/dLLDL (CALC) 96.0 mg/dLGLUCOSE 90.0 mg/dLSODIUM 143.0 mmol/LPOTASSIUM 4.0 mmol/LCHLORIDE 106.0 mmol/LCO2 26.0 mmol/LBUN 19.0 mg/dLCREATININE 1.0 mg/dLSGOT/AST 22.0 IU/LSGPT/ALT 33.0 IU/LALK PHOS 164.0 IU/LTOTAL PROTEIN 6.90 g/dLALBUMIN 4.10 g/dLTOTAL BILI 0.60 mg/dLCALCIUM 10.10 mg/dLeGFR 55 05/23/2013 8:10 AM WBC 6.4 RBC 4.97 HGB 14.60 g/dLHCT 44.20 %MCV 89.0 fLMCH 29.40 pgMCHC 33.0 g/dLRDW CV 13.80 %MPV 9.70 fLPLT 266 %NEUT 54.80 %%LYMP 31.50 %%MONO 8.0 %%EOS 5.20 %%BASO 0.50 %#NEUT 3.50 #LYMP 2.01 #MONO 0.51 #EOS 0.33 #BASO 0.03 GLUCOSE 94.0 mg/dLSODIUM 142.0 mmol/LPOTASSIUM 3.60 mmol/LCHLORIDE 104.0 mmol/LCO2 25.0 mmol/LBUN 25.0 mg/dLCREATININE 1.10 mg/dLSGOT/AST 21.0 IU/LSGPT/ALT 31.0 IU/LALK PHOS 158.0 IU/LTOTAL PROTEIN 6.70 g/dLALBUMIN 4.0 g/dLTOTAL BILI 0.60 mg/dLCALCIUM 10.50 mg/dLeGFR 50 TRIGLYCERIDES 140.0 mg/dLCHOLESTEROL 178.0 mg/dLHDL 54.0 mg/dLLDL (CALC) 96.0 mg/dL 08/26/2013 8:15 AM GLUCOSE 98.0 mg/dLSODIUM 141.0 mmol/LPOTASSIUM 3.50 mmol/LCHLORIDE 106.0 mmol/LCO2 27.0 mmol/LBUN 31.0 mg/dLCREATININE 1.10 mg/dLSGOT/AST 19.0 IU/LSGPT/ALT 23.0 IU/LALK PHOS 117.0 IU/LTOTAL PROTEIN 6.60 g/dLALBUMIN 3.90 g/dLTOTAL BILI 0.60 mg/dLCALCIUM 9.70 mg/dLeGFR 50 WBC 5.7 RBC 4.61 HGB 13.60 g/dLHCT 40.30 %MCV 87.0 fLMCH 29.50 pgMCHC 33.70 g/dLRDW CV 14.20 %MPV 9.30 fLPLT 201 %NEUT 51.70 %%LYMP 34.60 %%MONO 8.60 %%EOS 4.60 %%BASO 0.50 %#NEUT 2.95 #LYMP 1.97 #MONO 0.49 #EOS 0.26 #BASO 0.03 TRIGLYCERIDES 93.0 mg/dLCHOLESTEROL 179.0 mg/dLHDL 54.0 mg/dLLDL (CALC) 106.0 mg/dLCREAT UR 110.60 mg/dLMICROALBUMIN UR <0.5 MG/DL 02/24/2014 8:22 AM WBC 6.9 RBC 4.81 HGB 14.10 g/dLHCT 42.90 %MCV 89.0 fLMCH 29.30 pgMCHC 32.90 g/dLRDW CV 13.50 %MPV 9.70 fLPLT 249 %NEUT 59.20 %%LYMP 25.0 %%MONO 8.40 %%EOS 7.0 %%BASO 0.40 %#NEUT 4.07 #LYMP 1.72 #MONO 0.58 #EOS 0.48 #BASO 0.03 GLUCOSE 93.0 mg/dLSODIUM 143.0 mmol/LPOTASSIUM 3.90 mmol/LCHLORIDE 105.0 mmol/LCO2 26.0 mmol/LBUN 25.0 mg/dLCREATININE 1.0 mg/dLSGOT/AST 21.0 IU/LSGPT/ALT 27.0 IU/LALK PHOS 145.0 IU/LTOTAL PROTEIN 6.80 g/dLALBUMIN 4.0 g/dLTOTAL BILI 0.60 mg/dLCALCIUM 9.70 mg/dLeGFR 55 TRIGLYCERIDES 99.0 mg/dLCHOLESTEROL 148.0 mg/dLHDL 53.0 mg/dLLDL (CALC) 75.0 mg/dL 05/30/2014 7:35 AM WBC 7.3 RBC 4.66 HGB 13.70 g/dLHCT 42.10 %MCV 90.0 fLMCH 29.40 pgMCHC 32.50 g/dLRDW CV 14.20 %MPV 9.50 fLPLT 227 %NEUT 56.30 %%LYMP 28.60 %%MONO 7.50 %%EOS 7.20 %%BASO 0.40 %#NEUT 4.12 #LYMP 2.09 #MONO 0.55 #EOS 0.53 #BASO 0.03 TRIGLYCERIDES 176.0 mg/dLCHOLESTEROL 189.0 mg/dLHDL 51.0 mg/dLLDL (CALC) 103.0 mg/dLGLUCOSE 94.0 mg/dLSODIUM 144.0 mmol/LPOTASSIUM 3.80 mmol/LCHLORIDE 109.0 mmol/LCO2 25.0 mmol/LBUN 22.0 mg/dLCREATININE 0.90 mg/dLSGOT/AST 21.0 IU/LSGPT/ALT 31.0 IU/LALK PHOS 116.0 IU/LTOTAL PROTEIN 6.70 g/dLALBUMIN 3.90 g/dLTOTAL BILI 0.40 mg/dLCALCIUM 9.30 mg/dLeGFR >60 mL/min/1.73 m2 07/25/2014 10:20 AM INFLUENZA A & B INFLUENZA A POSITIVE 09/25/2014 8:50 AM TSH 1.10 uIU/mLTRIGLYCERIDES 117.0 mg/dLCHOLESTEROL 163.0 mg/dLHDL 52.0 mg/dLLDL (CALC) 88.0 mg/dLGLUCOSE 93.0 mg/dLSODIUM 143.0 mmol/LPOTASSIUM 3.40 mmol/LCHLORIDE 107.0 mmol/LCO2 27.0 mmol/LBUN 13.0 mg/dLCREATININE 1.0 mg/dLSGOT/AST 22.0 IU/LSGPT/ALT 26.0 IU/LALK PHOS 145.0 IU/LTOTAL PROTEIN 6.60 g/dLALBUMIN 3.90 g/dLTOTAL BILI 0.60 mg/dLCALCIUM 9.30 mg/dLeGFR 55 WBC 6.2 RBC 4.73 HGB 13.80 g/dLHCT 42.40 %MCV 90.0 fLMCH 29.20 pgMCHC 32.50 g/dLRDW CV 13.70 %MPV 9.40 fLPLT 217 %NEUT 57.20 %%LYMP 22.70 %%MONO 7.40 %%EOS 12.20 %%BASO 0.50 %#NEUT 3.55 #LYMP 1.41 #MONO 0.46 #EOS 0.76 #BASO 0.03 12/21/2014 9:10 AM WBC 7.3 RBC 4.89 HGB 14.50 g/dLHCT 43.50 %MCV 89.0 fLMCH 29.70 pgMCHC 33.30 g/dLRDW CV 14.60 %MPV 9.30 fLPLT 209 %NEUT 55.80 %%LYMP 28.20 %%MONO 6.90 %%EOS 8.70 %%BASO 0.40 %#NEUT 4.06 #LYMP 2.05 #MONO 0.50 #EOS 0.63 #BASO 0.03 GLUCOSE 99.0 mg/dLSODIUM 142.0 mmol/LPOTASSIUM 3.70 mmol/LCHLORIDE 106.0 mmol/LCO2 27.0 mmol/LBUN 20.0 mg/dLCREATININE 0.90 mg/dLSGOT/AST 22.0 IU/LSGPT/ALT 27.0 IU/LALK PHOS 148.0 IU/LTOTAL PROTEIN 6.80 g/dLALBUMIN 4.10 g/dLTOTAL BILI 0.60 mg/dLCALCIUM 9.70 mg/dLeGFR >60 mL/min/1.73mTRIGLYCERIDES 157.0 mg/dLCHOLESTEROL 176.0 mg/dLHDL 50.0 mg/dLLDL (CALC) 95.0 mg/dL 03/16/2015 9:10 AM WBC 6.8 RBC 4.82 HGB 14.20 g/dLHCT 42.80 %MCV 89.0 fLMCH 29.50 pgMCHC 33.20 g/dLRDW CV 13.40 %MPV 9.80 fLPLT 236 %NEUT 56.0 %%LYMP 30.10 %%MONO 5.60 %%EOS 7.70 %%BASO 0.60 %#NEUT 3.79 #LYMP 2.04 #MONO 0.38 #EOS 0.52 #BASO 0.04 GLUCOSE 101.0 mg/dLSODIUM 144.0 mmol/LPOTASSIUM 3.40 mmol/LCHLORIDE 106.0 mmol/LCO2 28.0 mmol/LBUN 18.0 mg/dLCREATININE 1.10 mg/dLSGOT/AST 19.0 IU/LSGPT/ALT 27.0 IU/LALK PHOS 145.0 IU/LTOTAL PROTEIN 6.40 g/dLALBUMIN 4.0 g/dLTOTAL BILI 0.60 mg/dLCALCIUM 9.60 mg/dLeGFR 49 TRIGLYCERIDES 136.0 mg/dLCHOLESTEROL 163.0 mg/dLHDL 54.0 mg/dLLDL (CALC) 82.0 mg/dL History Of Immunizations Name Date Admin Mfg Name Mfg Code Trade Name Lot# Route Inj Vis Given Vis Pub CVX Tdap 08/14/2014 sanofi pasteur PMC ADACEL [id number] Intramuscular Left Deltoid 08/14/2014 08/12/2012 115 History [...] 2015 10:38AM Hyperglycemia Mar 21 2015 10:38AM Payers Insurance Name Company Name Plan Name Plan Number Policy Number Policy Group Number Start Date Medicare Part A Medicare Part A [id number] N/A [employer] Insurance [employer] Insurance [employer] [id number] N/A Railroad Medicare Railroad Medicare [id number] Friday, 2011 Railroad Medicare RH Railroad Medicare RHC USE MEDICARE A [id number] N/A History of Encounters Visit Date Visit Type Provider 03/21/2015 Office visit Emily Ortiz MD 12/27/2014 Office visit Emily Ortiz MD 09/26/2014 Office visit Emily Ortiz MD 08/14/2014 Office visit 08/14/2014 Office visit Emily Ortiz MD 07/25/2014 Office visit Emily Ortiz MD 07/19/2014 Office visit Emily Ortiz MD 06/05/2014 Office visit Emily Ortiz MD 03/06/2014 Office visit Emiyl Ortiz MD 11/30/2013 Office visit Kaia Kennedy [...]
[2018-10-13] MEDS ORDERED: NS IV 500 ML 500 ML ONE (07:03)
--- OUTSIDE RECORDS SUMMARY | 2018-10-13 07:03 | XMS REPORT ---
Author Author Emily Ortiz Organization [facility] Address [address] [place], [place] [id number] Care Team Providers Care Insole Lip Turner Name Role Phone Emily Ortiz PCP Emily Ortiz PreferredProvider Allergies and Adverse Reactions Name Reaction Notes INFLUENZA VIRUS VACCINE [place] pt is allergic to the generic Plan of Treatment Planned Activity Comments Planned Date Planned Time Plan/Goal Nerve conduction studies; 1-2 studies 12/14/2015 12:00 AM Comprehensive Metabolic Panel 11/30/2013 12:00 [...] once daily fluoxetine 10 mg oral capsule 01/11/2016 01/05/2017 TAKE ONE CAPSULE BY MOUTH EVERY DAY for 90 days Name Start Date Expiration Date SIG [...] ONE VIAL IN NEBULIZER 4 TIMES DAILY Advair Diskus 500-50 mcg/dose inhalation blister with device 04/25/2015 10/22/2015 take 1 puff by inhalation route 2 times a day for 30 days Synthroid 25 mcg oral tablet 11/26/2015 02/24/2016 take 1 tablet (25 mcg) by oral route once daily for 90 days Discontinued Name Start Date Discontinued Date [...] HC BMI BSA BMI Percentile O2 Sat(%) 01/11/2016 10:38:00 AM 116 mmHg 70 mmHg 73 bpm 16 rpm 98 F 173 lbs 66 in 27.92 kg/m2 1.91 m2 95 % 12/14/2015 9:31:00 AM 148 mmHg 80 mmHg 89 bpm 16 rpm 98.3 F 173.375 lbs 66 in 27.9832 kg/m 1.9137 m 95 % 03/21/2015 10:35:00 AM 128 mmHg [...] AM COMPLETE CBC W/AUTO DIFF WBC Reviewed 07/02/2011 12:00 AM COMPREHEN METABOLIC PANEL Reviewed 07/02/2011 12:00 AM LIPID PANEL Reviewed 08/12/2011 12:00 AM COMPREHEN METABOLIC PANEL Reviewed 08/12/2011 12:00 AM LIPID PANEL Reviewed 11/12/2011 12:00 AM COMPREHEN METABOLIC PANEL Reviewed 11/12/2011 12:00 AM LIPID PANEL Reviewed 02/10/2012 12:00 AM COMPREHEN METABOLIC PANEL Reviewed 02/10/2012 12:00 AM LIPID PANEL Reviewed 02/10/2012 12:00 AM COMPLETE CBC W/AUTO DIFF WBC Reviewed 05/19/2012 12:00 AM COMPREHEN METABOLIC PANEL [...] ASSAY THYROID STIM HORMONE Reviewed Results Summary Data and Description Results 04/29/2011 [...] 51.0 mg/dLTOT CHOL/HDL 3.7 LDL (CALC) 103.0 mg/dLGLUCOSE 94.0 mg/dLSODIUM 144.0 mmol/LPOTASSIUM 3.80 mmol/LCHLORIDE 109.0 mmol/LCO2 25.0 mmol/LBUN 22.0 mg/dLCREATININE 0.90 mg/dLSGOT/AST 21.0 IU/LSGPT/ALT 31.0 IU/LALK PHOS 116.0 IU/LTOTAL PROTEIN 6.70 g/dLALBUMIN 3.90 g/dLTOTAL BILI 0.40 mg/dLCALCIUM 9.30 mg/dLAGE 68 GFR NonAA 62 GFR AA 75 eGFR >60 mL/min/1.73 m2eGFR AA* >60 07/25/2014 10:20 AM INFLUENZA A & B [...] mg/dLTOT CHOL/HDL 3.0 LDL (CALC) 82.0 mg/dL 12/19/2015 7:55 AM WBC 6.7 RBC 4.98 HGB 14.30 g/dLHCT 44.30 %MCV 89.0 fLMCH 28.70 pgMCHC 32.30 g/dLRDW SD 45 RDW CV 13.80 %MPV 9.0 fLPLT 241 NRBC# 0.00 NRBC% 0.0 %NEUT 57.80 %%LYMP 25.40 %%MONO 9.10 %%EOS 7.20 %%BASO 0.40 %#NEUT 3.85 #LYMP 1.70 #MONO 0.61 #EOS 0.48 #BASO 0.03 MANUAL DIFF NOT IND GLUCOSE 95.0 mg/dLSODIUM 144.0 mmol/LPOTASSIUM 3.80 mmol/LCHLORIDE 106.0 mmol/LCO2 30.0 mmol/LBUN 20.0 mg/dLCREATININE 1.0 mg/dLSGOT/AST 20.0 IU/LSGPT/ALT 25.0 IU/LALK PHOS 136.0 IU/LTOTAL PROTEIN 6.60 g/dLALBUMIN 4.10 g/dLTOTAL BILI 0.60 mg/dLCALCIUM 9.60 mg/dLAGE 70 GFR NonAA 55 GFR AA 67 eGFR 55 eGFR AA* >60 TRIGLYCERIDES 168.0 mg/dLCHOLESTEROL 157.0 mg/dLHDL 55.0 mg/dLTOT CHOL/HDL 2.9 LDL (CALC) 68.0 mg/dL History Of Immunizations Name Date Admin Mfg Name Mfg Code Trade Name Lot# Route Inj Vis Given Vis Pub CVX Tdap 08/14/2014 sanofi pasteur PMC ADACEL [id number] Intramuscular Left Deltoid 08/14/2014 08/12/2012 115 History [...] tunnel syndrome, left Jan 11 2016 10:44AM Payers Insurance Name Company Name Plan Name Plan Number Policy Number Policy Group Number Start Date Medicare Part A Medicare RHC [id number] N/A [employer] [id number] N/A Medicare Part A [id number] P A - Preventive [id number] N/A Medicare Part A Medicare - Lab/Xray [id number] N/A Railroad Medicare Railroad Medicare [id number] Friday, August 05, 2011 Railroad Medicare - Railroad Railroad Medicare [id number] N/A Medicare Part A Medicare Part A [id number] N/A History of Encounters Visit Date Visit Type Provider 01/11/2016 Office visit Emily Ortiz MD 12/14/2015 [...]
--- OUTSIDE RECORDS SUMMARY | 2018-10-13 07:05 | XMS REPORT ---
Author Author Emily Ortiz Organization [facility] Address [address] [place], [place] [id number] Care Team Providers Care Manager Store Name Role Phone Emily Ortiz PCP Emily [...] BY MOUTH EVERY DAY for 90 days levothyroxine 25 mcg oral tablet 05/05/2016 TAKE ONE TABLET BY MOUTH ONCE DAILY Advair Diskus 500-50 mcg/dose inhalation blister with device 06/23/2016 INHALE ONE DOSE BY MOUTH TWICE DAILY Name Start Date Expiration Date SIG [...] HC BMI BSA BMI Percentile O2 Sat(%) 07/16/2016 3:20:00 PM 116 mmHg 64 mmHg 79 bpm 16 rpm 97.8 F 171.25 lbs 66 in 27.64 kg/m2 1.90 m2 93 % 04/17/2016 2:23:00 PM 132 mmHg 72 mmHg 79 bpm 16 rpm 98.6 F 180 lbs 66 in 29.0525 kg/m 1.9499 m 94 % 01/11/2016 10:38:00 AM 116 mmHg [...] mg/dLTOT CHOL/HDL 2.9 LDL (CALC) 68.0 mg/dL 04/14/2016 9:15 AM WBC 6.3 RBC 4.96 HGB 14.10 g/dLHCT 43.90 %MCV 89.0 fLMCH 28.40 pgMCHC 32.10 g/dLRDW SD 45 RDW CV 14.30 %MPV 9.50 fLPLT 244 NRBC# 0.00 NRBC% 0.0 %NEUT 59.70 %%LYMP 24.40 %%MONO 8.50 %%EOS 6.20 %%BASO 0.90 %#NEUT 3.78 #LYMP 1.55 #MONO 0.54 #EOS 0.39 #BASO 0.06 MANUAL DIFF NOT IND GLUCOSE 96.0 mg/dLSODIUM 145.0 mmol/LPOTASSIUM 3.60 mmol/LCHLORIDE 107.0 mmol/LCO2 27.0 mmol/LBUN 17.0 mg/dLCREATININE 1.0 mg/dLSGOT/AST 21.0 IU/LSGPT/ALT 28.0 IU/LALK PHOS 122.0 IU/LTOTAL PROTEIN 6.70 g/dLALBUMIN 4.0 g/dLTOTAL BILI 0.60 mg/dLCALCIUM 9.50 mg/dLAGE 70 GFR NonAA 55 GFR AA 67 eGFR 55 eGFR AA* >60 TRIGLYCERIDES 89.0 mg/dLCHOLESTEROL 145.0 mg/dLHDL 51.0 mg/dLTOT CHOL/HDL 2.8 LDL (CALC) 76.0 mg/dL 07/14/2016 8:40 AM TSH 0.750 uIU/mL History Of Immunizations Name Date Admin Mfg Name Mfg Code Trade Name Lot# Route Inj Vis Given Vis Pub CVX Tdap 08/14/2014 [employer] PMC ADACEL [id number] Intramuscular Left Deltoid 08/14/2014 08/12/2012 115 History [...] 3:23PM Hypothyroidism, Acquired Jul 16 2016 3:23PM Payers Insurance Name Company Name Plan Name Plan Number Policy Number Policy Group Number Start Date Medicare RHC Medicare RHC [id number] N/A [employer] [id number] N/A Railroad Medicare Railroad Medicare [id number] Friday, 2011 [facility] Railroad Medicare [id number] N/A Medicare Part A Medicare Part A [id number] N/A [employer] [id number] N/A Medicare Part A [id number] P A - Preventive [id number] N/A Medicare Part A Medicare - Lab/Xray [id number] N/A History of Encounters Visit Date Visit Type Provider 07/16/2016 Office visit Emily Ortiz MD 04/17/2016 [...] visit Emily Ortiz MD 11/30/2013 Office visit aKia Kennedy APRN 08/30/2013 Office visit Emily Ortiz [...]
[2018-10-13] MEDS ORDERED: fentaNYL INJECTION 100 MCG/2 ML AMP ONE ×3 (07:07→07:27)
[2018-10-13] MEDS ORDERED: MIDAZOLAM 2 MG/2 ML (VERSED) VIAL ONE ×4 (07:07→07:27)
[2018-10-13] MEDS ORDERED: proPOfol 200 MG/20 ML (DIPRIVAN) VIAL IV ONE (07:07)
[2018-10-13] MEDS ORDERED: LIDOCAINE PF 2% 5 ML (XYLOCAINE) VIAL ONE (07:07)
[2018-10-13] MEDS ORDERED: ROCURONIUM 10 MG/ML 5 ML SYRINGE IV ONE (07:07)
--- OUTSIDE RECORDS SUMMARY | 2018-10-13 07:07 | XMS REPORT ---
Author Author Eric Dos Santos Organization [facility] Address [address] [place], [place] [id number] Care Team Providers Care Cable Reeler Name Role Phone Eric Dos Santos PCP Emily Ortiz PreferredProvider Allergies and Adverse [...] each nostril by intranasal route once daily levothyroxine 25 mcg oral tablet 05/05/2016 TAKE ONE TABLET BY MOUTH ONCE DAILY Advair Diskus 500-50 mcg/dose inhalation blister with device 06/23/2016 INHALE ONE DOSE BY MOUTH TWICE DAILY albuterol sulfate 2.5 mg /3 mL [...] TAKE ONE CAPSULE BY MOUTH ONCE DAILY Discontinued Name Start [...] HC BMI BSA BMI Percentile O2 Sat(%) 02/23/2017 9:02:00 AM 130 mmHg 60 mmHg [...] bpm 98.4 F 180.125 lbs 67 in 28.2113 kg/m 1.9653 m 95 % 12/27/2014 10:21:00 AM 124 mmHg 70 mmHg 76 bpm 99.1 F 179.375 lbs 66 in 28.95 kg/m2 1.95 m2 94 % 09/26/2014 10:08:00 AM 112 mmHg 74 mmHg 81 bpm 98.4 F 179.125 lbs 66 in 28.9112 kg/m 1.9451 m 92 % 08/14/2014 3:43:00 PM 130 mmHg 64 mmHg 82 bpm 96.9 F 177.25 lbs 66 in 28.61 kg/m2 1.93 m2 96 % 07/25/2014 9:31:00 AM 122 mmHg 66 mmHg 102 bpm 99.5 F 178.5 lbs 66 in 28.8104 kg/m 1.9417 m 95 % 07/19/2014 1:30:00 PM 124 mmHg 68 mmHg 80 bpm 98.6 F 177.5 lbs 67 in 27.80 kg/m2 1.95 m2 95 % 06/05/2014 1:46:00 PM 122 mmHg 66 mmHg 80 bpm 98.6 F 177.25 lbs 67 in 27.761 kg/m 1.9495 m 95 % 03/06/2014 1:17:00 PM 110 mmHg 62 mmHg 75 bpm 16 rpm 97.9 F 177 lbs 67 in 27.72 kg/m2 1.95 m2 97 % 11/30/2013 11:00:00 AM 120 mmHg 68 mmHg 75 bpm 20 rpm 97.5 F 171.2 lbs 67 in 26.8134 kg/m 1.916 m 95 % 08/30/2013 2:08:00 PM 122 mmHg 63 mmHg 80 bpm 16 rpm 98.3 F 173 lbs 67 in 27.10 kg/m2 1.93 m2 95 % 05/26/2013 2:10:00 PM 110 mmHg 70 mmHg 76 bpm 16 rpm 97.9 F 172.25 lbs 67 in 26.9779 kg/m 1.9218 m 95 % 02/23/2013 2:02:00 PM 118 mmHg 68 mmHg 79 bpm 16 rpm 97.2 F 170.375 lbs 98 % 11/23/2012 1:12:00 PM 122 mmHg 74 mmHg 69 bpm 20 rpm 97.4 F 167.8 lbs 67 in 26.2809 kg/m 1.8969 m 95 % 08/16/2012 1:44:00 PM 122 mmHg [...] rpm 97.3 F 182.5 lbs 67 in 28.5832 kg/m 1.9782 m 98 % Social History Name Description Comments [...] Reviewed Results Summary Date and Description Results 05/05/2011 8:35 AM WBC 5.6 RBC 4.79 [...] CVX Tdap 08/14/2014 sanofi pasteur PMC ADACEL [id number] Intramuscular Left Deltoid 08/14/2014 08/12/2012 115 History [...] on both sides Jan 19 2017 3:07PM Payers Insurance Name Company Name Plan Name Plan Number Policy Number Policy Group Number Start Date Medicare Part A Medicare Part A [id number] N/A [employer] [id number] N/A [employer] Medicare Railroad Medicare [id number] Friday, 2011 Railroad Medicare - Railroad Railroad Medicare [id number] N/A [employer]ico Insurance Company [employer] Company [id number] N/A Medicare Part A ZZZMedicare P A - Preventive [id number] N/A Medicare Part A Medicare - Lab/Xray [id number] N/A Medicare RHC Medicare RHC [id number] N/A History of Encounters Visit Date Visit Type Provider 02/23/2017 Procedures Ericjacey Dos Santos DO 01/19/2017 Office visit Emily Ortiz MD 12/20/2016 [facility] Ihsa Juarez MD 10/15/2016 Office visit Emily Ortiz [...] Ortiz MD 11/30/2013 Office visit Kaia Kennedy COMB TENDER 08/30/2013 Office visit Emily Ortiz MD 05/26/2013 Office visit Emily Ortiz MD 02/23/2013 Office visit Rohini Eckert MD 11/23/2012 Office visit Kaia Kennedy COMB TENDER 08/16/2012 Office visit Rohini Eckert MD 05/19/2012 Office visit Rohini Eckert MD 02/10/2012 Office visit Rohini Eckert MD 11/12/2011 Office visit Rohini Eckert MD 08/12/2011 Office visit Rohini Eckert MD 07/02/2011 Office visit Rohini Eckert MD 05/05/2011 Nurse visit Rohini Eckert MD 04/29/2011 Office visit Rohini Eckert MD
--- OUTSIDE RECORDS SUMMARY | 2018-10-13 07:08 | XMS REPORT ---
Author Author Emily Ortiz Organization [facility] Address [address] [place], [place] [id number] Care Team Providers Care Asphalt Roller Operator Name Role Phone Emily Ortiz PCP Emily Ortiz PreferredProvider Allergies and Adverse Reactions Name Reaction Notes INFLUENZA VIRUS VACCINE [place] pt is allergic to the generic Plan of Treatment Planned Activity Comments Planned Date Planned Time Plan/Goal Nerve conduction studies; 1-2 studies 12/14/2015 12:00 AM CBC with Auto 04/14/2016 12:00 AM CMP (comprehensive metabolic panel) 04/14/2016 12:00 AM Lipid profile 04/14/2016 12:00 AM Comprehensive Metabolic Panel 11/30/2013 12:00 [...] 14.30 g/dLHCT 44.30 %MCV 89.0 fLMCH 28.70 pgHC 32.30 g/dLRDW SD 45 RDW CV 13.80 [...] CVX Tdap 08/14/2014 sanofi pasteur PMC ADACEL [id number] Intramuscular Left Deltoid 08/14/2014 08/12/2012 115 History [...] 9:07AM Hyperlipidemia, unspecified Apr 14 2016 9:07AM Payers Insurance Name Company Name Plan Name Plan Number Policy Number Policy Group Number Start Date Medicare Part A Medicare [facility] [id number] N/A [employer]ico Insurance Company [employer] [id number] N/A Medicare Part A ZZZMedicare P A - Preventive [id number] N/A Medicare Part A Medicare - Lab/Xray [id number] N/A Railroad Medicare Railroad Medicare [id number] Friday, August 05, 2011 Railroad Medicare - Railroad Railroad Medicare [id number] N/A Medicare Part A Medicare Part A [id number] N/A History of Encounters Visit Date Visit Type Provider 01/11/2016 Office visit Emily Ortiz MD 12/14/2015 Office visit Emily Ortiz MD 03/21/2015 Office visit Emily Ortiz MD 12/27/2014 Office visit Emily Ortzi MD 09/26/2014 Office visit Emily Ortiz MD [...]
--- OUTSIDE RECORDS SUMMARY | 2018-10-13 07:10 | XMS REPORT ---
Author Author Haylee Yanes Organization [facility] Address [address] [place], [place] [id number] Care Team Providers Care Sole Molding Machine Operator Name Role Phone Haylee Yanes PCP Emily [...] F 169 lbs 66 in 27.277 kg/m 1.89 m2 97 % 10/15/2016 2:20:00 PM 138 mmHg 76 mmHg 80 bpm 18 rpm 99 F 171.125 lbs 66 in 27.62 kg/m2 1.9012 m 93 % 07/16/2016 3:20:00 PM 116 mmHg 64 mmHg 79 bpm 16 rpm 97.8 F 171.25 lbs 66 in 27.6402 kg/m 1.90 m2 93 % 04/17/2016 2:23:00 PM 132 mmHg 72 mmHg 79 bpm 16 rpm 98.6 F 180 lbs 66 in 29.05 kg/m2 1.9499 m 94 % 01/11/2016 10:38:00 AM 116 mmHg 70 mmHg 73 bpm 16 rpm 98 F 173 lbs 66 in 27.9226 kg/m 1.91 m2 95 % 12/14/2015 9:31:00 AM 148 mmHg 80 mmHg 89 bpm 16 rpm 98.3 F 173.375 lbs 66 in 27.98 kg/m2 1.9137 m 95 % 03/21/2015 10:35:00 AM 128 mmHg 64 mmHg 84 bpm 98.4 F 180.125 lbs 67 in 28.2113 kg/m 1.97 m2 95 % 12/27/2014 10:21:00 AM 124 mmHg 70 mmHg 76 bpm 99.1 F 179.375 lbs 66 in 28.95 kg/m2 1.9465 m 94 % 09/26/2014 10:08:00 AM [...] CVX Tdap 08/14/2014 sanofi pasteur PMC ADACEL [id number] Intramuscular Left Deltoid 08/14/2014 08/12/2012 115 History [...] 3:07PM Influenza-like illness May 09 2017 8:32AM Payers Insurance Name Company Name Plan Name Plan Number Policy Number Policy Group Number Start Date Medicare RHC Medicare RHC [id number] N/A [employer] [id number] N/A Railroad Medicare Railroad Medicare [id number] Friday, 2011 Railroad Medicare - Railroad Railroad Medicare [id number] N/A Medicare Part A Medicare Part A [id number] N/A [employer]ico Insurance Company [employer] Company [id number] N/A Medicare Part A ZZZMedicare P A - Preventive [id number] N/A Medicare Part A Medicare - Lab/Xray [id number] N/A History of Encounters Visit Date Visit Type Provider 05/09/2017 Office visit Haylee Yanes DOGGY DAYCARE ACTIVITIES DIRECTOR 02/23/2017 Procedures Eric Dos Santos DO 01/19/2017 Office visit Emily Ortiz MD 12/20/2016 [facility] Inna Juarez MD 10/15/2016 Office visit [...] Ortiz MD 11/30/2013 Office visit Kaia Kennedy DOGGY DAYCARE ACTIVITIES DIRECTOR 08/30/2013 Office visit Emily Ortiz MD 05/26/2013 Office visit Emily Ortiz MD 02/23/2013 Office visit Rohini Eckert MD 11/23/2012 Office visit Kaia Kennedy DOGGY DAYCARE ACTIVITIES DIRECTOR 08/16/2012 Office visit Rohini Eckert MD 05/19/2012 Office visit Rohini Eckert MD 02/10/2012 Office visit Rohini Eckert MD 11/12/2011 Office visit Rohini Eckert MD 08/12/2011 Office visit Rohini Eckert MD 07/02/2011 Office visit Rohini Eckert MD 05/05/2011 Nurse visit Rohini Eckert MD 04/29/2011 Office visit Rohini Eckert MD
--- OUTSIDE RECORDS SUMMARY | 2018-10-13 07:11 | XMS REPORT ---
Author Author Emily Ortiz Organization [facility] Address [address] [place], [place] [id number] Care Team Providers Care Survey Director Name Role Phone Emily Ortiz PCP Allergies and Adverse Reactions Name Reaction Notes INFLUENZA VIRUS VACCINE [place] pt is allergic to the generic Plan of Treatment Planned Activity Comments Planned Date Planned Time Plan/Goal COMPLETE CBC W/AUTO DIFF WBC 03/16/2015 12:00 AM COMPREHEN METABOLIC PANEL 03/16/2015 12:00 AM LIPID PANEL 03/16/2015 12:00 AM COMPREHEN METABOLIC PANEL 11/30/2013 12:00 AM INFLUENZA [...] route every 6 hours for 90 days Advair Diskus 250-50 mcg/dose inhalation blister with device 09/26/2014 03/25/2015 inhale 1 puff by inhalation route 2 times per day in the morning and evening approximately 12 hours apart for 30 days Synthroid 25 mcg oral tablet 02/12/2015 take 1 tablet (25 mcg) by oral route once daily for 30 days albuterol sulfate 2.5 mg /3 mL [...] 01/02/2015 take as directed for 6 days Discontinued Name Start Date Discontinued Date [...] HC BMI BSA BMI Percentile O2 Sat(%) 12/27/2014 10:21:00 AM 124 mmHg 70 mmHg [...] F 182.5 lbs 67 in 28.5832 kg/m 1.98 m2 98 % Social History Name Description Comments High school graduate Tobacco Former smoker Denies illicit substance abuse Active but no formal exercise retired Did not serve in [employer] Children Lives with spouse History of Procedures Date Ordered Description Order Status 12/21/2014 12:00 AM COMPLETE CBC W/AUTO DIFF WBC Returned 12/21/2014 12:00 AM COMPREHEN METABOLIC PANEL Returned 12/21/2014 12:00 AM LIPID PANEL Returned 04/29/2011 12:00 [...] 176.0 mg/dLHDL 50.0 mg/dLLDL (CALC) 95.0 mg/dL History Of Immunizations Name Date Admin Mfg Name Mfg Code Trade Name Lot# Route Inj Vis Given Vis Pub CVX Tdap 08/14/2014 sanofi pasteur PMC ADACEL [id number] Intramuscular Left Deltoid 08/14/2014 08/12/2012 115 History [...] 8:58AM Hyperlipidemia, unspecified Mar 16 2015 8:58AM Payers Insurance Name Company Name Plan Name Plan Number Policy Number Policy Group Number Start Date Medicare Part A Medicare Part A [id number] N/A [employer]ico [employer] Company [employer] Company [id number] N/A Railroad Medicare Railroad Medicare [id number] Friday, 2011 Railroad Medicare RHC Railroad Medicare RHC USE MEDICARE A [id number] N/A History of Encounters Visit Date Visit Type Provider 12/27/2014 Office visit Emily Ortiz MD 09/26/2014 Office visit Emily Ortiz MD 08/14/2014 Office visit Emily Ortiz MD 07/25/2014 Office visit Emily Ortiz MD 07/19/2014 Office visit Emily Ortiz MD 06/05/2014 Office visit Emily Ortiz MD 03/06/2014 Office visit Emily Ortiz MD 11/30/2013 Office visit Kaia Kennedy DRYWALL MECHANIC 08/30/2013 Office visit Emily Ortiz MD 05/26/2013 Office visit Emily Ortiz MD 02/23/2013 Office visit Rohini Eckert MD 11/23/2012 Office visit Kaia Kennedy DRYWALL MECHANIC 08/16/2012 Office visit Rohini Eckert MD 05/19/2012 Office visit Rohini Eckert MD 02/10/2012 Office visit Rohini Eckert MD 11/12/2011 Office visit Rohini Eckert MD 08/12/2011 Office visit Rohini Eckert MD 07/02/2011 Office visit Rohini Eckert MD 05/05/2011 Nurse visit Rohini Eckert MD 04/29/2011 Office visit Rohini Eckert MD
--- OUTSIDE RECORDS SUMMARY | 2018-10-13 07:12 | XMS REPORT ---
Author Author Emily Ortiz Organization [facility] Address [address] [place], [place] [phone] Care Team Providers Care Coach Cleaner Name Role Phone Emily Ortiz PCP Allergies and Adverse Reactions Name Reaction Notes INFLUENZA VIRUS VACCINE [place] Plan of Treatment Planned Activity Comments Planned Date Planned Time Plan/Goal COMPREHEN METABOLIC PANEL 11/30/2013 12:00 AM INFLUENZA A/B AG EIA 07/25/2014 12:00 AM CYTOPATH C/V THIN LAYER 07/19/2014 12:00 AM Medications Active Name Start Date Estimated Completion Date SIG Comments Lipitor Oral Tablet 80 mg take 1 tablet (80 mg) by oral route once daily triamterene-hydrochlorothiazid Oral Tablet 75-50 mg take 1 tablet by oral route once daily triamcinolone acetonide Nasal Aerosol, Eakly 55 mcg spray 1 spray in each nostril by intranasal route once daily triamcinolone acetonide Nasal Aerosol, Eakly 55 mcg spray 1 spray in each nostril by intranasal route once daily Spiriva with HandiHaler inhalation capsule, w/inhalation device 18 mcg 06/05/2014 10/03/2014 inhale 1 capsule (18 mcg) by inhalation route once daily for 30 days aspirin oral tablet,delayed release (DR/EC) 81 mg take 1 tablet by oral route Advair HFA inhalation HFA aerosol inhaler 115-21 mcg/actuation 07/26/2014 inhale 2 puffs by inhalation route 2 times per day in the morning and evening fluoxetine oral capsule 10 mg 08/02/2014 07/28/2015 TAKE ONE CAPSULE BY MOUTH EVERY DAY Name Start Date Expiration Date SIG Comments ProAir HFA Inhalation HFA Aerosol Inhaler 90 mcg/actuation 05/02/2011 04/26/2012 inhale 2 puffs by inhalation route every 6 hours as needed Avapro Oral Tablet 300 mg 08/12/2011 09/11/2011 take 1 tablet (300 mg) by oral route once daily Advair Diskus Inhalation Disk with Device 500-50 mcg/dose 12/25/2011 01/24/2012 INHALE ONE INHALATION EVERY TWELVE HOURS not covered prednisone oral tablet 5 mg 08/30/2013 09/13/2013 take 1 tablet by oral route daily for 14 days Albuterol Sulfate Inhalation Nebu Soln 0.083 % 11/17/2013 01/18/2014 USE ONE VIAL IN NEBULIZER 4 TIMES DAILY Discontinued Name Start Date Discontinued Date SIG Comments [place] Oral Tablet 32 mg 08/12/2011 take 1 tablet (32 mg) by oral route once daily Symbicort inhalation HFA aerosol inhaler 160-4.5 mcg/actuation 06/05/2014 07/26/2014 inhale 2 puffs by inhalation route 2 times per day in the morning and evening for 30 days Problem List Description Status Onset Allergic rhinitis Active CAD Active Chronic Obstructive Pulmonary Disease Active Hyperlipidemia Active Hypertension Active Vital Signs Date Time BP-Sys(mm[Hg] BP-Dilia(mm[Hg]) HR(bpm) RR(rpm) Temp WT HT HC BMI BSA BMI Percentile O2 Sat(%) 07/25/2014 9:31:00 AM 122 mmHg 66 mmHg [...] of Procedures Date Ordered Description Order Status 04/29/2011 12:00 AM COMPREHEN METABOLIC PANEL Returned [...] Returned 08/26/2013 12:00 AM MICROALBUMIN SEMIQUANT Returned 09/08/2013 12:00 AM MRI JOINT UPR EXTREM W/O DYE Returned 11/30/2013 12:00 AM LIPID PANEL Returned 11/30/2013 12:00 AM COMPLETE CBC W/AUTO DIFF WBC Returned 03/07/2014 12:00 AM COMPLETE CBC W/AUTO DIFF WBC Returned 03/07/2014 12:00 AM COMPREHEN METABOLIC PANEL Returned 03/07/2014 12:00 AM LIPID PANEL Returned 07/04/2014 12:00 AM MAMMOGRAM SCREENING Returned Results Summary Data and Description Results [...] 13.80 g/dLHCT 41.60 %MCV 88.0 fLMCH 29.20 [facility] 33.20 g/dLRDW CV 13.50 %MPV 9.70 fLPLT [...] INFLUENZA A & B INFLUENZA A POSITIVE History Of Immunizations Not available. History of Past Illness Name Date of [...] Q 2 years Jul 19 2014 1:33PM Payers Insurance Name Company Name Plan Name Plan Number Policy Number Policy Group Number Start Date Medicare Part A Medicare Part A [id number] N/A Medico Insurance Company [employer] [id number] N/A Railroad Medicare Railroad Medicare [id number] Friday, 2011 Railroad Medicare RHC Railroad Medicare RHC USE MEDICARE A [id number] N/A History of Encounters Visit Date Visit Type Provider 07/25/2014 Office visit Emily Ortiz MD 07/19/2014 Office visit Emily Ortiz MD 06/05/2014 Office visit Emily Ortiz MD 03/06/2014 Office visit Emily Ortiz MD 11/30/2013 Office visit Kaia Kennedy SALES ASSOCIATE KEY HOLDER 08/30/2013 Office visit Emily Ortiz MD 05/26/2013 Office visit Emily Ortiz MD 02/23/2013 Office visit Rohini Eckert MD 11/23/2012 Office visit Kaia Kennedy SALES ASSOCIATE KEY HOLDER 08/16/2012 Office visit Rohini Eckert MD 05/19/2012 Office visit Rohini Eckert MD 02/10/2012 Office visit Rohini Eckert MD 11/12/2011 Office visit Rohini Eckert MD 08/12/2011 Office visit Rohini Eckert MD 07/02/2011 Office visit Rohini Eckert MD 05/05/2011 Nurse visit Rohini Eckert MD 04/29/2011 Office visit Rohini Eckert MD
--- OUTSIDE RECORDS SUMMARY | 2018-10-13 07:14 | XMS REPORT ---
Author Author Emily Ortiz Organization [facility] Address [address] [place], [place] [phone] Care Team Providers Care Facility Security Officer Name Role Phone Emily Ortiz PCP Emily Ortiz PreferredProvider Allergies and Adverse Reactions Name Reaction Notes INFLUENZA VIRUS VACCINE [place] pt is allergic to the generic Plan of Treatment Planned Activity Comments Planned Date Planned Time Plan/Goal Nerve conduction studies; 1-2 studies 12/14/2015 12:00 AM Thyroid stimulating hormone (TSH) measurement 05/18/2016 12:00 AM Comprehensive Metabolic Panel 11/30/2013 12:00 [...] TAKE ONE TABLET BY MOUTH ONCE DAILY Name Start Date [...] HC BMI BSA BMI Percentile O2 Sat(%) 04/17/2016 2:23:00 PM 132 mmHg 72 mmHg [...] mg/dLTOT CHOL/HDL 2.8 LDL (CALC) 76.0 mg/dL History Of Immunizations Name Date Admin Mfg Name Mfg Code Trade Name Lot# Route Inj Vis Given Vis Pub CVX Tdap 08/14/2014 sanofi pasteur PMC ADACEL [id number] Intramuscular Left Deltoid 08/14/2014 08/12/2012 115 History [...] Obstructive Pulmonary Disease Apr 17 2016 2:26PM Payers Insurance Name Company Name Plan Name Plan Number Policy Number Policy Group Number Start Date Medicare RHC Medicare RHC [id number] N/A [employer] [id number] N/A Railroad Medicare Railroad Medicare [id number] Friday, 2011 Railroad Medicare - Railroad Railroad Medicare [id number] N/A Medicare Part A Medicare Part A [id number] N/A [employer]ico Insurance Company [employer] Company [id number] N/A Medicare Part A ZZZMedicare P A - Preventive [id number] N/A Medicare Part A Medicare - Lab/Xray [id number] N/A History of Encounters Visit Date Visit Type Provider 04/17/2016 Office visit Emily Ortiz MD 01/11/2016 Office visit Emily Ortiz MD 12/14/2015 Office visit Emily Ortiz MD 03/21/2015 Office visit Emily Ortiz MD 12/27/2014 Office visit Emily Ortiz MD 09/26/2014 Office visit Emily Ortiz MD 08/14/2014 Office visit 08/14/2014 Office visit Emliy Ortiz MD 07/25/2014 Office visit Emily Ortiz [...]
[2018-10-13] MEDS ORDERED: fentaNYL INJECTION 100 MCG/2 ML AMP IVP ONE (07:15)
[2018-10-13] MEDS ORDERED: MIDAZOLAM 2 MG/2 ML (VERSED) VIAL IVP ONE (07:15)
--- OUTSIDE RECORDS SUMMARY | 2018-10-13 07:15 | XMS REPORT ---
Author Author Emily Ortiz Organization [facility] Address [address] [place], [place] [id number] Care Team Providers Care Engrosser Name Role Phone Emily Ortiz PCP Allergies and Adverse Reactions Name Reaction Notes INFLUENZA VIRUS VACCINE [place] Plan of Treatment Planned Activity Comments Planned Date Planned Time Plan/Goal COMPREHEN METABOLIC PANEL 11/30/2013 12:00 AM INFLUENZA A/B AG EIA 07/25/2014 12:00 AM CYTOPATH C/V THIN LAYER 07/19/2014 12:00 AM COMPLETE CBC W/AUTO DIFF WBC 09/25/2014 12:00 AM COMPREHEN METABOLIC PANEL 09/25/2014 12:00 AM LIPID PANEL 09/25/2014 12:00 AM GLYCOSYLATED HEMOGLOBIN TEST 09/25/2014 12:00 AM ASSAY THYROID STIM HORMONE 09/25/2014 12:00 AM Medications Active Name Start Date Estimated Completion Date SIG Comments Lipitor Oral Tablet 80 mg take 1 tablet (80 mg) by oral route once daily triamterene-hydrochlorothiazid Oral Tablet 75-50 mg take 1 tablet by oral route once daily triamcinolone acetonide Nasal Aerosol, [place]rum[place] 55 mcg spray 1 spray in each nostril by intranasal route once daily triamcinolone acetonide Nasal Aerosol, [place]rumpler 55 mcg spray 1 spray in each nostril by intranasal route once daily aspirin oral tablet,delayed release (DR/EC) 81 mg take 1 tablet by oral route fluoxetine oral capsule 10 mg 08/02/2014 07/28/2015 TAKE ONE CAPSULE BY MOUTH EVERY DAY ipratropium bromide inhalation solution 0.02 % 08/14/2014 02/05/2016 inhale 1.25 milliliters (250 mcg) via nebulizer by inhalation route every 6 hours for 90 days Name Start Date Expiration [...] oral route once daily Spiriva with HandiHaler inhalation capsule, w/inhalation device 18 mcg 06/05/2014 08/14/2014 inhale 1 capsule (18 mcg) by inhalation route once daily for 30 days to expensive Symbicort inhalation HFA aerosol inhaler 160-4.5 mcg/actuation 06/05/2014 07/26/2014 inhale 2 puffs by inhalation route 2 times per day in the morning and evening for 30 days Advair HFA inhalation HFA aerosol inhaler 115-21 mcg/actuation 07/26/2014 08/14/2014 inhale 2 puffs by inhalation route 2 times per day in the morning and evening to expensive Problem List Description Status Onset Allergic rhinitis Active CAD Active Chronic obstructive pulmonary disease Active Hyperlipidemia Active Hypertension Active Vital Signs Date Time BP-Sys(mm[Hg] BP-Dilia(mm[Hg]) HR(bpm) RR(rpm) Temp WT HT HC BMI BSA BMI Percentile O2 Sat(%) 08/14/2014 3:43:00 PM 130 mmHg 64 mmHg [...] AM TDAP VACCINE 7 YRS/> IM Reviewed Results Summary Data and Description Results [...] B INFLUENZA A POSITIVE History Of Immunizations Name Date Admin Mfg Name Mfg Code Trade Name Lot# Route Inj Vis Given Vis Pub CVX Tdap 08/14/2014 sanofi pasteur PMC ADACEL [id number] Intramuscular Left Deltoid 08/14/2014 08/12/2012 115 History of Past Illness Name Date of Onset Comments Chronic obstructive pulmonary disease CAD Allergic rhinitis Hyperlipidemia Hypertension Essential Hypertension [...] 2014 8:37AM Hypertriglyceridemia Sep 25 2014 8:37AM Payers Insurance Name Company Name Plan Name Plan Number Policy Number Policy Group Number Start Date Medicare Part A Medicare Part A [id number] N/A [employer] Company [employer] [id number] N/A Railroad Medicare Railroad Medicare [id number] Friday, 2011 Railroad Medicare RHC Railroad Medicare RHC USE MEDICARE A [id number] N/A History of Encounters Visit Date Visit Type Provider 08/14/2014 Office visit Emily Ortiz MD 07/25/2014 Office visit Emily Ortiz MD 07/19/2014 Office visit Emily Ortiz MD 06/05/2014 Office visit Emily Ortiz MD 03/06/2014 Office visit Emily Ortiz MD 11/30/2013 Office visit Kaia Kennedy DISEASE CONTROL INSPECTOR 08/30/2013 Office visit Emily Ortiz MD 05/26/2013 Office visit Emily Ortiz MD 02/23/2013 Office visit Rohini Eckert MD 11/23/2012 Office visit Kaia Kennedy DISEASE CONTROL INSPECTOR 08/16/2012 Office visit Rohini Eckert MD 05/19/2012 Office visit Rohini Eckert MD 02/10/2012 Office visit Rohini Eckert MD 11/12/2011 Office visit Rohini Eckert MD 08/12/2011 Office visit Rohini Eckert MD 07/02/2011 Office visit Rohini Eckert MD 05/05/2011 Nurse visit Rohnii Eckert MD 04/29/2011 Office visit Rohini Eckert MD
--- OUTSIDE RECORDS SUMMARY | 2018-10-13 07:16 | XMS REPORT ---
Author Author Emily Ortiz Organization [facility] Address [address] [place], [place] [id number] Care Team Providers Care Thermal Intelligence Analyst Name Role Phone Emily Ortiz PCP Allergies [...] 12:00 AM LIPID PANEL 09/25/2014 12:00 AM Medications Active Name Start Date Estimated Completion Date SIG Comments Lipitor Oral Tablet 80 mg take 1 tablet (80 mg) by oral route once daily triamterene-hydrochlorothiazid Oral Tablet 75-50 mg take 1 tablet by oral route once daily triamcinolone acetonide Nasal Aerosol, [place] 55 mcg spray 1 spray in each nostril by intranasal route once daily triamcinolone acetonide Nasal Aerosol, [place] 55 mcg spray 1 spray in each nostril by intranasal route once daily fluoxetine oral capsule 10 mg 08/02/2014 07/28/2015 TAKE ONE CAPSULE BY MOUTH EVERY DAY Enteric Coated Aspirin oral tablet,delayed release (DR/EC) 81 mg 09/26/2014 09/27/2014 take 1 tablet by oral route 3 times per week ipratropium bromide inhalation solution 0.02 % 09/26/2014 03/19/2016 inhale 2.5 milliliters (500 mcg) via nebulizer by inhalation route every 6 hours for 90 days Advair Diskus inhalation blister with device 250-50 mcg/dose 09/26/2014 03/25/2015 inhale 1 puff by inhalation route 2 times per day in the morning and evening approximately 12 hours apart for 30 days Name Start Date Expiration [...] HC BMI BSA BMI Percentile O2 Sat(%) 09/26/2014 10:08:00 AM 112 mmHg 74 mmHg [...] 7 YRS/> IM Reviewed 09/25/2014 12:00 AM ASSAY THYROID STIM [...] A POSITIVE 09/25/2014 8:50 AM TSH 1.10 uIU/mL History Of Immunizations Name Date Admin Mfg Name Mfg Code Trade Name Lot# Route Inj Vis Given Vis Pub CVX Tdap 08/14/2014 sanofi pasteur [facility] ADACEL [id number] Intramuscular Left Deltoid 08/14/2014 08/12/2012 115 History [...] 10:07AM Chronic bronchitis Sep 26 2014 10:07AM Payers Insurance Name Company Name Plan Name Plan Number Policy Number Policy Group Number Start Date Medicare Part A Medicare Part A [id number] N/A [employer] Company [employer] [id number] N/A [facility] Medicare Railroad Medicare [id number] Friday, 2011 Railroad Medicare RHC [facility] Medicare RHC USE MEDICARE A [id number] N/A History of Encounters Visit Date Visit Type Provider 09/26/2014 Office visit Emily Ortiz MD 08/14/2014 [...]
--- OUTSIDE RECORDS SUMMARY | 2018-10-13 07:18 | XMS REPORT ---
Author Author Emily Ortiz Organization [facility] Address [address] [place], [place] [id number] Care Team Providers Care Industrial Relations Counselor Name Role Phone Emily Ortiz PCP Emily Ortiz PreferredProvider Allergies and Adverse Reactions Name Reaction Notes INFLUENZA VIRUS VACCINE [place] pt is allergic to the generic Plan of Treatment Planned Activity Comments Planned Date Planned Time Plan/Goal Nerve conduction studies; 1-2 studies 12/14/2015 12:00 AM CBC with Auto 10/10/2016 12:00 AM CMP (comprehensive metabolic panel) 10/10/2016 12:00 AM Lipid profile 10/10/2016 12:00 AM Thyroid stimulating hormone (TSH) 10/10/2016 12:00 AM Comprehensive Metabolic Panel 11/30/2013 12:00 [...] CVX Tdap 08/14/2014 sanofi pasteur [facility] ADACEL [id number] Intramuscular Left Deltoid 08/14/2014 08/12/2012 115 History [...] 8:45AM Hypothyroidism, Acquired Oct 10 2016 8:45AM Payers Insurance Name Company Name Plan Name Plan Number Policy Number Policy Group Number Start Date Medicare RHC Medicare RHC [id number] N/A [employer] [id number] N/A Railroad Medicare Railroad Medicare [id number] Friday, 2011 Railroad Medicare - Railroad Railroad Medicare [id number] N/A Medicare Part A Medicare Part A [id number] N/A Medico Insurance Company [employer] [id number] N/A Medicare Part A ZZZMedicare P A - Preventive [id number] N/A Medicare Part A Medicare - Lab/Xray [id number] N/A History of Encounters Visit Date Visit [...]
--- OUTSIDE RECORDS SUMMARY | 2018-10-13 07:19 | XMS REPORT ---
Author Author Emily Ortiz Organization [facility] Address [address] [place], [place] [phone] Care Team Providers Care Vat Overhauler Name Role Phone Emily Ortiz PCP Allergies and Adverse Reactions Name Reaction Notes INFLUENZA VIRUS VACCINE [place] pt is allergic to the generic Plan of Treatment Planned Activity Comments Planned Date Planned Time Plan/Goal COMPLETE CBC W/AUTO DIFF WBC 12/21/2014 12:00 AM COMPREHEN METABOLIC PANEL 12/21/2014 12:00 AM LIPID PANEL 12/21/2014 12:00 AM COMPREHEN METABOLIC PANEL 11/30/2013 12:00 [...] by oral route daily for 14 days albuterol sulfate 2.5 mg /3 mL (0.083 %) inhalation solution for nebulization 11/17/2013 01/18/2014 USE ONE VIAL IN NEBULIZER 4 TIMES DAILY Enteric Coated Aspirin 81 mg oral tablet,delayed release (DR/EC) 09/26/2014 09/27/2014 take 1 tablet by oral route 3 times per week Discontinued Name Start Date Discontinued Date SIG [...] 1.41 #MONO 0.46 #EOS 0.76 #BASO 0.03 History Of Immunizations Name Date Admin Mfg Name Mfg Code Trade Name Lot# Route Inj Vis Given Vis Pub CVX Tdap 08/14/2014 sanofi pasteur PMC ADACEL [id number] Intramuscular Left Deltoid 08/14/2014 08/12/2012 115 History [...] 9:02AM Hyperlipidemia, unspecified Dec 21 2014 9:02AM Payers Insurance Name Company Name Plan Name Plan Number Policy Number Policy Group Number Start Date Medicare Part A Medicare Part A [id number] N/A [employer]ico [employer] Company [employer] [id number] N/A Railroad Medicare Railroad Medicare [id number] Friday, 2011 Railroad Medicare RHC Railroad Medicare RHC USE MEDICARE A [id number] N/A History of Encounters Visit Date Visit Type Provider 09/26/2014 Office visit Emily Ortiz MD 08/14/2014 Office visit Emily Ortiz MD 07/25/2014 Office visit Emily Ortiz MD 07/19/2014 Office visit Emily Ortiz MD 06/05/2014 Office visit Emily Ortiz MD 03/06/2014 Office visit Emily Ortiz MD 11/30/2013 Office visit Kaia Kennedy PERFORATOR OPERATOR 08/30/2013 Office visit Emily Ortiz MD 05/26/2013 Office visit Emily Ortiz MD 02/23/2013 Office visit Rohini Eckert MD 11/23/2012 Office visit Kaia Kennedy PERFORATOR OPERATOR 08/16/2012 Office visit Rohini Eckert MD 05/19/2012 Office visit Rohini Eckert MD 02/10/2012 Office visit Rohini Eckert MD 11/12/2011 Office visit Rohini Eckert MD 08/12/2011 Office visit Rohini Eckert MD 07/02/2011 Office visit Rohini Eckert MD 05/05/2011 Nurse visit Rohini Eckert MD 04/29/2011 Office visit Rohini Eckert MD
--- OUTSIDE RECORDS SUMMARY | 2018-10-13 07:21 | XMS REPORT ---
Author Author Eric Dos Santos Organization [facility] Address [address] [place], [place] [id number] Care Team Providers Care Steaming Cabinet Tender Name Role Phone Eric Dos Santos PCP [...] CVX Tdap 08/14/2014 sanofi pasteur PMC ADACEL [id number] Intramuscular Left Deltoid 08/14/2014 08/12/2012 115 History [...] 9:05AM Hand weakness Feb 23 2017 9:05AM Payers Insurance Name Company Name Plan Name Plan Number Policy Number Policy Group Number Start Date Medicare Part A Medicare Part A [id number] N/A [employer] [id number] N/A Railroad Medicare [place] Medicare [id number] Friday, 2011 Railroad Medicare - Railroad Railroad Medicare [id number] N/A [employer] Insurance Company [employer] Company [id number] N/A Medicare Part A ZZZMedicare P A - Preventive [id number] N/A Medicare Part A Medicare - Lab/Xray [id number] N/A Medicare RHC Medicare RHC [id number] N/A History of Encounters Visit Date Visit Type Provider 02/23/2017 Procedures Eric Dos Santos DO 01/19/2017 Office visit Emily Ortiz MD 12/20/2016 [facility] Isha Juarez MD 10/15/2016 Office visit Emily [...]
--- OUTSIDE RECORDS SUMMARY | 2018-10-13 07:22 | XMS REPORT ---
Author Author Emily Ortiz [facility] Address [address] [place], [place] [id number] Care Team Providers Care Head Stock Operator Name Role Phone Emily Ortiz PCP Allergies [...] route once daily triamcinolone acetonide Nasal Aerosol, [place] 55 mcg spray 1 spray in each nostril by intranasal route once daily triamcinolone acetonide Nasal Aerosol, [place] 55 mcg spray 1 spray in each [...] expensive Problem List Description Status Onset Allergic Rhinitis [...] 14.10 g/dLHCT 42.90 %MCV 89.0 fLMCH 29.30 pgHC 32.90 g/dLRDW CV 13.50 %MPV 9.70 fLPLT [...] 4.66 HGB 13.70 g/dLHCT 42.10 %MCV 90.0 fLH 29.40 [facility] 32.[facility] g/dLRDW CV 14.20 %MPV 9.50 fLPLT [...] 2014 3:47PM Adacel Aug 14 2014 5:19PM Payers Insurance Name Company Name Plan Name Plan Number Policy Number Policy Group Number Start Date Medicare Part A Medicare Part A [id number] N/A [employer] Company [employer] [id number] N/A Railroad Medicare Railroad Medicare [id number] Friday, 2011 Railroad Medicare RHC Railroad Medicare RH USE MEDICARE A [id number] N/A History of Encounters Visit Date Visit Type Provider 08/14/2014 Office visit Emily Ortiz MD 07/25/2014 Office visit Emily Ortiz MD 07/19/2014 Office visit Emily Ortiz MD 06/05/2014 Office visit Emily Ortiz MD 03/06/2014 Office visit Emily Ortiz MD 11/30/2013 Office visit Kaia Kennedy EDUCATIONAL DIRECTOR 08/30/2013 Office visit Emily Ortiz MD 05/26/2013 Office visit Emily Ortiz MD 02/23/2013 Office visit Rohini Eckert MD 11/23/2012 Office visit Kaia Kennedy EDUCATIONAL DIRECTOR 08/16/2012 Office visit Rohini Eckert MD 05/19/2012 Office visit Rohini Eckert MD 02/10/2012 Office visit Rohini Eckert MD 11/12/2011 Office visit Rohini Eckert MD 08/12/2011 Office visit Rohini Eckert MD 07/02/2011 Office visit Rohini Eckert MD 05/05/2011 Nurse visit Rohini Eckert MD 04/29/2011 Office visit Rohini Eckert MD
--- OUTSIDE RECORDS SUMMARY | 2018-10-13 07:23 | XMS REPORT ---
Author Author Emily Ortiz Organization [facility] Address [address] [place], [place] [address] Care Team Providers Care Radiological Equipment Specialist Name Role Phone Emily Ortiz PCP Allergies [...] route once daily triamcinolone acetonide Nasal Aerosol, [place] 55 mcg spray 1 spray in each nostril by intranasal route once daily triamcinolone acetonide Nasal Aerosol, [place] 55 mcg spray 1 spray in each [...] 13.70 g/dLHCT 42.10 %MCV 90.0 fLH 29.40 [facility] 32.50 g/dLRDW CV 14.20 %MPV 9.50 fLPLT [...] obstructive pulmonary disease) Aug 14 2014 3:47PM Payers Insurance Name Company Name Plan Name Plan Number Policy Number Policy Group Number Start Date Medicare Part A Medicare Part A [id number] N/A [employer] Company [employer] [id number] N/A Railroad Medicare Railroad Medicare [id number] Friday, 2011 Railroad Medicare RHC Railroad Medicare RH USE MEDICARE A [id number] N/A History of Encounters Visit Date Visit Type Provider 08/14/2014 Office visit Emily Ortiz MD 07/25/2014 Office visit Emily Ortiz MD 07/19/2014 Office visit Emily Ortiz MD 06/05/2014 Office visit Emily Ortiz MD 03/06/2014 Office visit Emily Ortiz MD 11/30/2013 Office visit Kaia Kennedy CUE WORKER 08/30/2013 Office visit Emily Ortiz MD 05/26/2013 Office visit Emily Ortiz MD 02/23/2013 Office visit Rohini Eckert MD 11/23/2012 Office visit Kaia Kennedy CUE WORKER 08/16/2012 Office visit Rohini Eckert MD 05/19/2012 Office visit Rohini Eckert MD 02/10/2012 Office visit Rohini Eckert MD 11/12/2011 Office visit Rohini Eckert MD 08/12/2011 Office visit Rohini Eckert MD 07/02/2011 Office visit Rohini Eckert MD 05/05/2011 Nurse visit Rohini Eckert MD 04/29/2011 Office visit Rohini Eckert MD
--- OUTSIDE RECORDS SUMMARY | 2018-10-13 07:24 | XMS REPORT ---
Author Author Emily Ortiz Organization [facility] Address [address] [place], [place] [address] Care Team Providers Care Client Manager Large Law Name Role Phone Emily Ortiz PCP Allergies [...] 12:00 AM LIPID PANEL 09/25/2014 12:00 AM ASSAY THYROID STIM HORMONE 09/25/2014 12:00 AM Medications Active Name Start Date Estimated Completion Date SIG Comments Lipitor Oral Tablet 80 mg take 1 tablet (80 mg) by oral route once daily triamterene-hydrochlorothiazid Oral Tablet 75-50 mg take 1 tablet by oral route once daily triamcinolone acetonide Nasal Aerosol, [place] 55 mcg spray 1 spray in each nostril by intranasal route once daily triamcinolone acetonide Nasal Aerosol, [place] 55 mcg spray 1 spray in each [...] Vis Pub CVX Tdap 08/14/2014 sanofi pasteur [facility] ADACEL [id number] Intramuscular Left Deltoid 08/14/2014 08/12/2012 115 History [...] Date Medicare Part A Medicare Part A [id number] N/A Medico Insurance Glycominds Medico Insurance Glycominds [id number] N/A Railroad Medicare Railroad Medicare [id number] Friday, 2011 Railroad Medicare RHC Railroad Medicare RHC USE MEDICARE A [id number] N/A History of Encounters Visit Date Visit Type Provider 08/14/2014 Office visit Emily Ortiz MD 07/25/2014 Office visit Emily Ortiz MD 07/19/2014 Office visit Emily Ortiz MD 06/05/2014 Office visit Emily Ortiz MD 03/06/2014 Office visit Emily Ortiz MD 11/30/2013 Office visit Kaia Kennedy BENEFITS CLERK 08/30/2013 Office visit Emily Ortiz MD 05/26/2013 Office visit Emily Ortiz MD 02/23/2013 Office visit Rohini Eckert MD 11/23/2012 Office visit Kaia Kennedy BENEFITS CLERK 08/16/2012 Office visit Rohini Eckert MD 05/19/2012 Office visit Rohini Eckert MD 02/10/2012 Office visit Rohini Eckert MD 11/12/2011 Office visit Rohini Eckert MD 08/12/2011 Office visit Rohini Eckert MD 07/02/2011 Office visit Rohini Eckert MD 05/05/2011 Nurse visit Rohini Eckert MD 04/29/2011 Office visit Rohini Eckert MD
[2018-10-13] MEDS: NS IV 500 ML 500 ML IV PRN ×2 (07:25→07:35)
--- OUTSIDE RECORDS SUMMARY | 2018-10-13 07:26 | XMS REPORT ---
Author Author Emily Ortiz [facility] Address [address] [place], [place] [phone] Care Team Providers Care Engineering Lab Technician Name Role Phone Emily Ortiz PCP Allergies [...] Vis Given Vis Pub CVX Tdap 08/14/2014 higinio cortés PMC ADACEL [id number] Intramuscular Left Deltoid 08/14/2014 08/12/2012 115 History [...] 2014 10:24AM Fatigue Dec 27 2014 10:24AM Payers Insurance Name Company Name Plan Name Plan Number Policy Number Policy Group Number Start Date Medicare Part A Medicare Part A [id number] N/A [employer]ico [employer] Company [employer] Company [id number] N/A Railroad Medicare Railroad Medicare [id number] Friday, 2011 Railroad Medicare RHC Railroad Medicare RHC USE MEDICARE A [id number] N/A History of Encounters Visit Date Visit [...]
--- OUTSIDE RECORDS SUMMARY | 2018-10-13 07:27 | XMS REPORT ---
Author Author Emily Ortiz Organization [facility] Address [address] [place], [place] [address] Care Team Providers Care Rail Grinder Name Role Phone Emily Ortiz PCP Allergies and Adverse Reactions Name Reaction Notes INFLUENZA VIRUS VACCINE [place] pt is allergic to the generic Plan of Treatment Planned Activity Comments Planned Date Planned Time Plan/Goal NVR CNDJ TST 1-2 STUDIES 12/14/2015 12:00 AM COMPREHEN METABOLIC PANEL 11/30/2013 12:00 [...] each nostril by intranasal route once daily ipratropium bromide 0.02 % inhalation solution 09/26/2014 03/19/2016 inhale 2.5 milliliters (500 mcg) via nebulizer by inhalation route every 6 hours for 90 days Synthroid 25 mcg oral tablet 11/26/2015 02/24/2016 take 1 tablet (25 mcg) by oral route once daily for 90 days fluoxetine 10 mg oral capsule 12/11/2015 01/10/2016 TAKE ONE CAPSULE BY MOUTH EVERY DAY for 30 days Name Start Date Expiration [...] 2 times a day for 30 days Discontinued Name Start Date Discontinued Date [...] HC BMI BSA BMI Percentile O2 Sat(%) 12/14/2015 9:31:00 AM 148 mmHg 80 mmHg [...] CVX Tdap 08/14/2014 sanofi pasteur PMC ADACEL [id number] Intramuscular Left Deltoid 08/14/2014 08/12/2012 115 History [...] 10:38AM Ulnar nerve entrapment at elbow, left Sep 2015 9:35AM Payers Insurance Name Company Name Plan Name Plan Number Policy Number Policy Group Number Start Date Medicare Part A Medicare RHC [id number] N/A [employer] Company [employer] [id number] N/A Medicare Part A ZZZMedicare P A - Preventive [id number] N/A Medicare Part A Medicare - Lab/Xray [id number] N/A Railroad Medicare Railroad Medicare [id number] Friday, August 05, 2011 Railroad Medicare - Railroad Railroad Medicare [id number] N/A Medicare Part A Medicare Part A [id number] N/A History of Encounters Visit Date Visit Type Provider 12/14/2015 Office visit Emily Ortiz MD 03/21/2015 [...]
--- OUTSIDE RECORDS SUMMARY | 2018-10-13 07:29 | XMS REPORT | Continuity of Care Document ---
Author Organization Unknown Address Unknown Allergies There is no data. Medications There is no data. Problems There is no data. Procedures There is no data. Results There is no data. Encounters ACCT No. Visit Date/Time Discharge Status Pt. Type Provider Facility Loc./Unit Complaint [id number] 09/13/2018 10:44:10 09/13/2018 23:59:59 CLS Outpatient Calvin Britt [id number] 04/07/2018 11:20:22 04/07/2018 23:59:59 CLS Outpatient Calvin Britt [id number] 02/03/2018 11:09:04 02/03/2018 23:59:59 CLS Outpatient Calvin Britt [id number] 09/24/2017 11:20:28 09/24/2017 23:59:59 CLS Outpatient Calvin Britt [id number] 05/09/2017 09:09:55 05/09/2017 23:59:59 CLS Outpatient Haylee Yanes [id number] 02/23/2017 09:55:21 02/23/2017 23:59:59 CLS Outpatient Eric Dos Santos [id number] 02/17/2017 11:01:38 02/17/2017 23:59:59 CLS Outpatient Isha Juarez [id number] 01/19/2017 15:56:28 01/19/2017 23:59:59 CLS Outpatient Emily Ortiz [id number] 10/15/2016 15:11:30 10/15/2016 23:59:59 CLS Outpatient Emily Ortiz [id number] 07/16/2016 15:54:03 07/16/2016 23:59:59 CLS Outpatient Emily Ortiz [id number] 04/17/2016 14:56:11 04/17/2016 23:59:59 CLS Outpatient Emily Ortiz [id number] 01/11/2016 11:15:01 01/11/2016 23:59:59 CLS Outpatient Emily Ortiz [id number] 12/14/2015 12:13:58 12/14/2015 23:59:59 CLS Outpatient RidEmily carpio [id number] 03/21/2015 11:14:54 03/21/2015 23:59:59 CLS Outpatient Emily Ortiz [id number] 12/27/2014 10:54:03 12/27/2014 23:59:59 CLS Outpatient Emily Ortiz [id number] 11/13/2014 22:01:33 11/13/2014 23:59:59 CLS Outpatient Emily Ortiz [id number] 08/14/2014 16:12:22 08/14/2014 23:59:59 CLS Outpatient RidEmily carpio [id number] 07/25/2014 10:17:00 07/25/2014 23:59:59 CLS Outpatient Emily Ortiz [id number] 07/19/2014 14:10:57 07/19/2014 23:59:59 CLS Outpatient Emily Ortiz [id number] 03/06/2014 13:56:39 03/06/2014 23:59:59 CLS Outpatient Emily Ortiz [id number] 11/30/2013 11:46:37 11/30/2013 23:59:59 CLS Outpatient Kaia Kennedy April [id number] 08/30/2013 15:00:56 08/30/2013 23:59:59 CLS Outpatient Emily Ortiz [id number] 05/26/2013 14:25:13 05/26/2013 23:59:59 CLS Outpatient Keshawn Ortizole
--- OUTSIDE RECORDS SUMMARY | 2018-10-13 07:29 | XMS REPORT ---
Author Author Emily Ortiz Organization [facility] Address [address] [place], [place] [address] Care Team Providers Care Photographic Printer Name Role Phone Emily Ortiz PCP Emily Ortiz PreferredProvider Allergies and Adverse Reactions Name Reaction Notes INFLUENZA VIRUS VACCINE [place] pt is allergic to the generic Plan of Treatment Planned Activity Comments Planned Date Planned Time Plan/Goal Nerve conduction studies; 1-2 studies 12/14/2015 12:00 AM Basic metabolic profile 10/15/2016 12:00 AM CBC With Auto Differential 10/15/2016 12:00 AM Comprehensive Metabolic Panel 11/30/2013 12:00 [...] ONE VIAL IN NEBULIZER 4 TIMES DAILY albuterol sulfate 2.5 mg /3 mL (0.083 %) inhalation solution for nebulization 10/29/2016 12/30/2016 USE ONE VIAL IN NEBULIZER 4 TIMES DAILY. Dx: COPD J44.9 Name Start Date Expiration Date SIG Comments [...] HC BMI BSA BMI Percentile O2 Sat(%) 10/15/2016 2:20:00 PM 138 mmHg 76 mmHg [...] 12:00 AM ASSAY THYROID STIM HORMONE Returned 02/10/2012 12:00 AM COMPREHEN METABOLIC PANEL [...] mg/dL 07/14/2016 8:40 AM TSH 0.750 uIU/mL 10/10/2016 8:55 AM WBC 5.6 RBC 4.81 HGB 14.0 g/dLHCT 42.70 %MCV 89.0 fLMCH 29.10 pgMCHC 32.80 g/dLRDW SD 44 RDW CV 13.40 %MPV 9.20 fLPLT 221 NRBC# 0.00 NRBC% 0.0 %NEUT 55.10 %%LYMP 28.30 %%MONO 9.60 %%EOS 6.10 %%BASO 0.70 %#NEUT 3.09 #LYMP 1.59 #MONO 0.54 #EOS 0.34 #BASO 0.04 MANUAL DIFF NOT IND TRIGLYCERIDES 123.0 mg/dLCHOLESTEROL 143.0 mg/dLHDL 46.0 mg/dLTOT CHOL/HDL 3.1 LDL (CALC) 72.0 mg/dLGLUCOSE 93.0 mg/dLSODIUM 143.0 mmol/LPOTASSIUM 4.10 mmol/LCHLORIDE 107.0 mmol/LCO2 28.0 mmol/LBUN 21.0 mg/dLCREATININE 1.0 mg/dLSGOT/AST 21.0 IU/LSGPT/ALT 25.0 IU/LALK PHOS 121.0 IU/LTOTAL PROTEIN 6.50 g/dLALBUMIN 3.90 g/dLTOTAL BILI 0.40 mg/dLCALCIUM 9.80 mg/dLAGE 71 GFR NonAA 55 GFR AA 67 eGFR 55 eGFR AA* >60 TSH 1.150 uIU/mL History Of Immunizations Name Date Admin Mfg Name Mfg Code Trade Name Lot# Route Inj Vis Given Vis Pub CVX Tdap 08/14/2014 sanofi pasteur PMC ADACEL [id number] Intramuscular Left Deltoid 08/14/2014 08/12/2012 115 History [...] Well adult exam Oct 15 2016 2:22PM Payers Insurance Name Company Name Plan Name Plan Number Policy Number Policy Group Number Start Date Medicare RHC Medicare RHC [id number] N/A [employer]ico [id number] N/A Railroad Medicare Railroad Medicare [id number] Friday, 2011 Railroad Medicare - Railroad Railroad Medicare [id number] N/A Medicare Part A Medicare Part A [id number] N/A Medico Insurance Company [employer] Insurance Company [id number] N/A Medicare Part A ZZZMedicare P A - Preventive [id number] N/A Medicare Part A Medicare - Lab/Xray [id number] N/A History of Encounters Visit Date Visit Type Provider 10/15/2016 Office visit Emily Ortiz MD 07/16/2016 [...] Ortiz MD 11/30/2013 Office visit Kaia Kennedy CLINICAL AIDE 08/30/2013 Office visit Emily Ortiz MD 05/26/2013 Office visit Emily Ortiz MD 02/23/2013 Office visit Rohini Eckert MD 11/23/2012 Office visit Kaia Kennedy CLINICAL AIDE 08/16/2012 Office visit Rohini Eckert MD 05/19/2012 Office visit Rohini Eckert MD 02/10/2012 Office visit Rohini Eckert MD 11/12/2011 Office visit Rohini Eckert MD 08/12/2011 Office visit Rohini Eckert MD 07/02/2011 Office visit Rohini Eckert MD 05/05/2011 Nurse visit Rohini Eckert MD 04/29/2011 Office visit Rohini Eckert MD
[2018-10-13 07:30] VITALS: BP 156/62
[2018-10-13] MEDS ORDERED: RT-ALBUTEROL/IPRATROPIUM 3 ML (DUONEB) VIAL ONE (08:07)
[2018-10-13 08:30] VITALS: BP 138/72
--- NOTE | 2018-10-13 08:57 | Diagnostic Imaging Report ---
EXAMINATION: Chest, 1 view. HISTORY: Bronchoscopy. COMPARISON: No prior examinations are available for comparison. FINDINGS: There are bronchoscopic changes in the right lung base. No pneumothorax is seen. There is a moderate-sized hiatal hernia. No pleural effusion. Median sternotomy wires are aligned. The heart size is normal. IMPRESSION: Bronchoscopic changes in the right base without pneumothorax. Dictated by: Dictated on workstation # [id number]
[2018-10-13 09:15] VITALS: BP 109/79
[2018-10-13 10:13] VITALS: BP 109/79
--- NOTE | 2018-10-13 11:14 | Pulmonary Procedures ---
Pulmonary Procedures Date of Procedure Date of Service: Oct 13, 2018 Bronch Bronchoscopy with Percepta bursh right mainstem regla, Bilateral washes, WILMAN and RML bronchoalveolar lavage (BAL),and, WILMAN and RML transbronchial brushes using fluoroscopy. Preop DX ILD Postop DX: same Complications: none After informed consent obtained and formal time out pt was sedated using Fentanyl and Versed. Bronchoscope was advanced through the nare and vocal cords. 1% lidocaine was used to anesthetize vocal cords, epiglottis, regla, and left/right main stem bronchus. An anatomical tour was undertaken down to the segmental bronchi bilaterally. No endobronchial lesions noted. Percepta brush right mainstem regla, Bilateral washes, WILMAN and RML bronchoalveolar lavage (BAL),and, WILMAN and RML transbronchial brushes using fluoroscopy were obtained. Pt tolerated procedure well. No complications noted. Stat CXR is pending. EMILI CHAMBERS DO Oct 13, 2018 11:14
--- NOTE | 2018-10-13 13:25 | Diagnostic Imaging Report ---
Indication: Bronchoscopy. 19.7 seconds of actual fluoroscopy time utilized during fluoroscopic assisted bronchoscopy. Impression: Fluoroscopy utilized during bronchoscopy. Dictated by: Dictated on workstation # [id number]
== END 2018-10-13 09:20 | disposition home or self-care (01) ==
LOC: ENDO 06:35
PROVIDERS: ATTEND Internal Medicine Critical Care Medicine
DX: J84.9 Interstitial pulmonary disease, unspecified (principal); R91.8 Other nonspecific abnormal finding of lung field; J30.9 Allergic rhinitis, unspecified; R06.00 Dyspnea, unspecified; R06.89 Other abnormalities of breathing; R05 Cough; Z87.891 Personal history of nicotine dependence; Z79.82 Long term (current) use of aspirin; Z79.899 Other long term (current) drug therapy
CPT/HCPCS: 71045; 87070; 87077; 87181; 87184; 87186; 87205

== ENCOUNTER → 2018-12-08 | Outpatient (CLI) | payer MEDICARE, OTHER ==
[~2018-12-08] MED LIST changes: +HOLD METFORMIN - RECEIVED CONTRAST 20 ML VIAL IV SCH; +IOHEXOL 350 MG/ML 100 ML (OMNIPAQUE 350) VIAL IV ONE; +NS 100 ML (IVPB) BAG IV ONE
[2018-12-08 11:53] LABS: CREATININE SERUM 1.08 MG/DL (0.60-1.30)
--- NOTE | 2018-12-08 13:03 | Diagnostic Imaging Report ---
PROCEDURE: CT chest with contrast only. TECHNIQUE: Multiple contiguous axial images were obtained through the chest after administration of intravenous contrast. Auto Exposure Controls were utilized during the CT exam to meet ALARA standards for radiation dose reduction. INDICATION: COPD, tobacco use, followup examination from abnormal CT scan dated 10/05/2018. FINDINGS: Similar to the previous study, there is diffuse background centrilobular emphysema. Bilateral pulmonary nodularity is again demonstrated with somewhat elongated nodule in the basilar aspect of the left upper lobe adjacent to the minor fissure measuring approximately 1.6 x 0.8 cm. This previously measured approximately 1.6 x 1.0 cm. There is mild surrounding interstitial prominence which could be due to pneumonitis or scarring. Circumscribed 1 cm right middle lobe nodule is not appreciably changed in overall appearance. There is no evidence of new pulmonary mass or infiltrate. Note is made of [id number] hiatal hernia with mild mural thickening of the distal esophagus. Low-density nodule in the left lobe of thyroid gland measures 1.8 x 1.6 cm. Previous measurement was 1.5 x 1.5 cm. Node is also made of a circumscribed nodule in the anterior left breast measuring 1 cm in diameter. Upper abdominal sections reveal hepatic steatosis. IMPRESSION: Overall appearance of the chest is not significantly changed. Bilateral pulmonary nodules are similar in size. There is possible slight interval increase in size of left thyroid gland nodule. There is also a 1 cm circumscribed nodule in the anterior left breast which was not included on the previous study. General stability over approximately two months is favorable although again, consideration could be given to PET imaging to evaluate metabolic activity or additional short-term followup CT imaging in six months. Dictated by: Dictated on workstation # [id number]
== END ==
LOC: RAD 10:48
PROVIDERS: ATTEND Nurse Practitioner Family
DX: J44.9 Chronic obstructive pulmonary disease, unspecified (principal); R91.8 Other nonspecific abnormal finding of lung field; Z87.891 Personal history of nicotine dependence
CPT/HCPCS: 36415; 71260; 82565; 84520

== ENCOUNTER → 2018-12-08 | Outpatient (CLI) | payer MEDICARE, OTHER ==
[~2018-12-08] MED LIST changes: -HOLD METFORMIN - RECEIVED CONTRAST 20 ML VIAL IV SCH; -IOHEXOL 350 MG/ML 100 ML (OMNIPAQUE 350) VIAL IV ONE; -NS 100 ML (IVPB) BAG IV ONE; +RT-ALBUTEROL SULF 2.5 MG/3 ML PRE-MIX VIAL INH ONE
== END ==
LOC: RT 12:41
PROVIDERS: ATTEND Nurse Practitioner Family
DX: J30.9 Allergic rhinitis, unspecified (principal); J44.9 Chronic obstructive pulmonary disease, unspecified; R91.8 Other nonspecific abnormal finding of lung field; Z87.891 Personal history of nicotine dependence
CPT/HCPCS: 94060; 94726; 94729